=== PATIENT | female | born 1940 | race African-American/Black ===

== ENCOUNTER → 2016-11-09 | Outpatient (CLI) | payer OTHER, MEDICAID ==
[2016-07-06 16:37] VITALS: BP 130/68
--- NOTE | 2016-11-09 15:45 | RAD ---
HISTORY: Right shoulder pain, nontraumatic Study: Right shoulder three view Comparison: None Findings: The clavicle is intact. Mild AC joint degenerative joint disease is present. The glenohumeral artic ulation is normal in its appearance. No acute cortical disruption or dislocation can be identified. The visualized portions of the scapula are unremarkable. In addition, the visualized portions of the right hemithorax appear normal. IMPRESSION: 1. AC joint degenerative joint disease Reported By:
--- NOTE | 2016-11-09 15:46 | RAD ---
HISTORY: Left shoulder pain, nontraumatic Study: Left shoulder three view Comparison: None Findings: The clavicle is intact as is the scapula, proximal humerus, and left upper ribs. Degenerative joint disease is present in the AC joint and glenohumeral joints. IMPRESSION: AC joint and glenohumeral joint degenerative joint disease Reported By:
--- NOTE | 2016-11-09 15:49 | RAD ---
HISTORY: Left elbow pain Study: Left elbow three view Comparison: None Findings: There is no evidence for acute bone or acute joint abnormality. No fracture, lytic, or blastic lesio n is identified. No joint erosion or joint effusion is present. There is, however, severe ulnar shiraz ral degenerative joint disease with joint space narrowing, osteophyte formation, and subchondral scl erosis. The radiohumeral joint appears within normal limits. 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
== END ==
LOC: RAD 14:27
PROVIDERS: ATTEND Nurse Practitioner Family
DX: M21.822 Other specified acquired deformities of left upper arm (principal); M79.7 Fibromyalgia; M19.012 Primary osteoarthritis, left shoulder; M19.022 Primary osteoarthritis, left elbow
CPT/HCPCS: 73030; 73070

== ENCOUNTER → 2016-11-16 | Outpatient (CLI) | payer OTHER, MEDICAID ==
[2016-07-06 16:37] VITALS: BP 130/68
[2016-11-16 11:43] LABS: BASOPHILS # (AUTO) 0.2 X10^3/uL (0.0-0.1); BASOPHILS % (AUTO) 3.5 % (0.2-1.0); EOSINOPHILS # (AUTO) 0.1 x10^3/uL (0.0-0.2); HEMOGLOBIN 13.5 g/dL (12.0-16.0); LYMPHOCYTES # (AUTO) 1.8 X10^3/uL (1.3-2.9); LYMPHOCYTES % (AUTO) 34.9 % (21.0-51.0); MEAN CORPUSCULAR HEMOGLOBIN 30.2 pg (27.0-34.0); MEAN CORPUSCULAR HGB CONC 33.9 g/dL (33.0-35.0); MEAN CORPUSCULAR VOLUME 89.3 fL (80.0-100.0); MONOCYTES # (AUTO) 0.3 x10^3/uL (0.3-0.8); MONOCYTES % (AUTO) 6.4 % (0.0-13.0); NEUTROPHILS # (AUTO) 2.8 x10^3/uL (2.2-4.8); NEUTROPHILS % (AUTO) 54.2 % (42.0-75.0); PLATELET COUNT 229 X10^3/uL (150.0-450.0); RED BLOOD COUNT 4.48 X10^6/uL (3.5-5.4); RED CELL DISTRIBUTION WIDTH 14.3 % (11.6-16.5); WHITE BLOOD COUNT 5.1 X10^3/uL (3.6-10.0)
[2016-11-16 12:06] LABS: HEMOGLOBIN A1C 5.7 % (4.5-6.2)
[2016-11-16 12:34] LABS: RHEUMATOID FACTOR NEGATIVE (NEGATIVE)
[2016-11-16 17:21] LABS: ALANINE AMINOTRANSFERASE 16 Units/L (12-78); ALBUMIN 3.8 g/dL (3.4-5.0); ALKALINE PHOSPHATASE 89 Units/L (46-116); ASPARTATE AMINO TRANSFERASE 18 Units/L (15-37); BLOOD UREA NITROGEN 14 mg/dL (7-18); CALCIUM 9.8 mg/dL (8.5-10.1); CARBON DIOXIDE 27.4 mmol/L (21-32); CHLORIDE 104 mmol/L (98-107); CHOL/HDL RATIO 2.7 (0.0-5.0); CHOLESTEROL 155 mg/dL (0-200); CREATININE 0.71 mg/dL (0.55-1.02); GLUCOSE 98 mg/dL (65-99); HDL CHOLESTEROL 57 mg/dL (40-60); SODIUM 140 mmol/L (136-145); TOTAL PROTEIN 7.4 g/dL (6.4-8.2); TRIGLYCERIDES 83 mg/dL (0-150); eGFR BLACK RACES > 60 (>60); eGFR NON BLACK RACES > 60 (>60)
== END ==
LOC: LAB 11:16
PROVIDERS: ATTEND Nurse Practitioner Family
DX: M79.7 Fibromyalgia (principal); E78.4 Other hyperlipidemia; I10 Essential (primary) hypertension
CPT/HCPCS: 36415; 80048; 80061; 80076; 83036; 85025; 86200; 86430

== ENCOUNTER → 2016-12-15 | Outpatient (CLI) | payer OTHER, MEDICAID ==
[2016-07-06 16:37] VITALS: BP 130/68
--- NOTE | 2016-12-15 15:32 | RAD ---
Three views of the left knee Indication: Chronic knee pain without an acute injury Findings: There is fairly symmetric diffuse joint space loss within the patellofemoral and femorotib ial compartments without significant osteophyte formation or sclerosis suggesting an inflammatory ar thropathy, correlation for history of rheumatoid arthritis is recommended. There is a suspected smal l suprapatellar joint effusion. No acute fracture dislocation. No localizing soft tissue swelling. Impression: Fairly symmetric joint space loss within the femorotibial and patellofemoral compartment s with a small suprapatellar joint effusion suggests a chronic inflammatory arthritis such as rheuma toid arthritis for which clinical correlation is needed. No acute fracture or dislocation of the lef t knee. Reported By:
--- NOTE | 2016-12-15 15:50 | RAD ---
HISTORY: Chronic knee pain Study: Right knee three views, weight-bearing Comparison: None Findings: The bones are osteopenic. There is no evidence for acute bone or acute joint abnormality. No fractur e, lytic, or blastic lesion is identified. No joint erosion or joint effusion is present. There is m ild medial lateral compartment narrowing likely degenerative in origin however considering the osteo penia and the lack of other significant degenerative changes an inflammatory arthritis could also be considered. IMPRESSION: Osteopenia Mild medial lateral compartment narrowing likely degenerative in origin however an inflammatory arth ritis could also be considered due to the osteopenia and lack of other degenerative findings. Reported By:
== END ==
LOC: RAD 14:37
PROVIDERS: ATTEND Nurse Practitioner Family
DX: M25.561 Pain in right knee (principal); M25.562 Pain in left knee
CPT/HCPCS: 73560

== ENCOUNTER → 2017-02-02 | Outpatient (CLI) | payer OTHER, MEDICAID ==
[2016-07-06 16:37] VITALS: BP 130/68
--- NOTE | 2017-02-02 15:14 | RAD ---
HISTORY: Inflammatory polyarthropathy Study: Left ankle three view Comparison: None Findings: The patient is status post open reduction and internal fixation of remote medial malleolar and dista l fibular fractures with hardware present. No acute fractures are identified. Posttraumatic degenera tive joint disease is present in the tibiotalar joint. No joint erosion or joint effusion is identif ied. IMPRESSION: Postsurgical/posttraumatic findings as above Posttraumatic degenerative joint disease tibiotalar joint Reported By:
--- NOTE | 2017-02-02 15:19 | RAD ---
HISTORY: Inflammatory polyarthropathy Study: right ankle three view Comparison: None Findings: No acute cortical disruption or dislocation can be identified. The ankle mortise remains well align ed. No significant soft tissue swelling or injury can be seen. The visualized portions of the talu s and calcaneus are unremarkable. IMPRESSION: 1. Negative exam. Reported By:
--- NOTE | 2017-02-02 15:20 | RAD ---
HISTORY: Inflammatory polyarthropathy Study: Right foot three view Comparison: None Findings: There is no evidence for acute bone or acute joint abnormality. No fracture, lytic, or blastic lesio n is identified. No erosive arthritis or soft tissue abnormality is identified. There is severe arth ritic change in the 1st MTP joint likely degenerative in origin. IMPRESSION: Severe degenerative joint disease 1st MTP joint Reported By:
--- NOTE | 2017-02-02 15:21 | RAD ---
HISTORY: Inflammatory polyarthropathy Study: Left foot three view Comparison: None Findings: There is no evidence for acute bone or acute joint abnormality. No fracture, lytic, or blastic lesio n is identified. No erosive arthritis is present. Degenerative joint disease is present in the 1st, 2nd, and 3rd tarsometatarsal joints. posttraumatic degenerative joint disease is present in the tibi otalar joint. IMPRESSION: Degenerative joint disease 1st, 2nd, 3rd tarsometatarsal joints Posttraumatic degenerative joint disease tibiotalar joint Reported By:
[2017-02-02 16:09] LABS: C-REACTIVE PROTEIN 5.4 mg/L (0-3.0); CALCIUM 9.6 mg/dL (8.5-10.1)
[2017-02-07 06:30] LABS: PARATHYROID HORMONE INT 111 pg/mL (15-65); VITAMIN D 25 OH 18 ng/mL (30-80)
[2017-02-07 06:45] LABS: ANTI-NUCLEAR ANTIBODY TEST None Detected (None Detected)
== END | disposition home or self-care (01) | DRG 554 ==
LOC: LAB 14:12
PROVIDERS: ATTEND Nurse Practitioner Family
DX: M81.0 Age-related osteoporosis without current pathological fracture (principal); M06.4 Inflammatory polyarthropathy; M89.9 Disorder of bone, unspecified
CPT/HCPCS: 36415; 73610; 73630; 82306; 82310; 82330; 83970; 85652; 86140; 86308

== ENCOUNTER → 2017-03-22 | Outpatient (CLI) | payer OTHER, MEDICAID ==
[2016-07-06 16:37] VITALS: BP 130/68
== END ==
LOC: LAB 13:54
PROVIDERS: ATTEND Nurse Practitioner Family
DX: E21.2 Other hyperparathyroidism (principal); M81.0 Age-related osteoporosis without current pathological fracture
CPT/HCPCS: 36415; 82306; 82310; 82330; 83970

== ENCOUNTER → 2017-08-10 | Outpatient (CLI) | payer OTHER, MEDICAID ==
[2016-07-06 16:37] VITALS: BP 130/68
[2017-08-10 14:03] LABS: BASOPHILS % (AUTO) 0.7 % (0.2-1.0); EOSINOPHILS # (AUTO) 0.1 x10^3/uL (0.0-0.2); EOSINOPHILS % (AUTO) 1.1 % (0.9-2.9); HEMATOCRIT 40.9 % (36.0-47.0); LYMPHOCYTES # (AUTO) 2.5 X10^3/uL (1.3-2.9); LYMPHOCYTES % (AUTO) 40.5 % (21.0-51.0); MEAN CORPUSCULAR HEMOGLOBIN 30.9 pg (27.0-34.0); MEAN CORPUSCULAR HGB CONC 34.2 g/dL (33.0-35.0); MEAN CORPUSCULAR VOLUME 90.4 fL (80.0-100.0); MEAN PLATELET VOLUME 9.2 fL (7.4-11.0); MONOCYTES # (AUTO) 0.4 x10^3/uL (0.3-0.8); MONOCYTES % (AUTO) 5.7 % (0.0-13.0); NEUTROPHILS # (AUTO) 3.2 x10^3/uL (2.2-4.8); PLATELET COUNT 245 X10^3/uL (150.0-450.0); RED BLOOD COUNT 4.53 X10^6/uL (3.5-5.4); RED CELL DISTRIBUTION WIDTH 13.9 % (11.6-16.5); WHITE BLOOD COUNT 6.2 X10^3/uL (3.6-10.0)
[2017-08-10 14:22] LABS: ALANINE AMINOTRANSFERASE 21 Units/L (12-78); ALBUMIN 3.6 g/dL (3.4-5.0); ALKALINE PHOSPHATASE 94 Units/L (46-116); ASPARTATE AMINO TRANSFERASE 22 Units/L (15-37); BLOOD UREA NITROGEN 16 mg/dL (7-18); CALCIUM 9.5 mg/dL (8.5-10.1); CARBON DIOXIDE 29.3 mmol/L (21-32); CHLORIDE 101 mmol/L (98-107); COR NA(FOR HYPERGLY) 137 mmol/L (136-145); CREATININE 0.73 mg/dL (0.55-1.02); FREE T4 (FREE THYROXINE) 1.05 ng/dL (0.76-1.46); SODIUM 137 mmol/L (136-145); TOTAL PROTEIN 7.5 g/dL (6.4-8.2); URIC ACID 4.9 mg/dL (2.6-6.0); eGFR BLACK RACES > 60 (>60); eGFR NON BLACK RACES > 60 (>60)
[2017-08-10 15:15] LABS: ERYTHROCYTE SEDIMENTATION RATE 15 MM/HOUR (0-20)
== END ==
LOC: LAB 13:39
PROVIDERS: ATTEND Nurse Practitioner Family
DX: M06.4 Inflammatory polyarthropathy (principal); E56.8 Deficiency of other vitamins; E21.2 Other hyperparathyroidism; M10.9 Gout, unspecified; E03.8 Other specified hypothyroidism; I10 Essential (primary) hypertension
CPT/HCPCS: 36415; 80053; 82306; 82330; 83970; 84439; 84443; 84481; 84550; 85025; 85652; 86140

== ENCOUNTER 2019-12-24 06:28 | Inpatient (IN) ==
[2019-12-24 06:43] VITALS: BMI 39.3
[2019-12-24] MEDS ORDERED: TYLENOL 500 MG TAB EXTRA STRENGTH PO ONE ×2 (07:13→07:15)
--- NOTE | 2019-12-24 07:19 | RAD ---
HISTORYFever, chills, body achesSTUDYCHEST, 1 VIEWCOMPARISONNoneFINDINGSThe heart is within normal limits in size. The daphney are normal. The lung sherman are clear. No pleural effusions are identified. Bony thorax is unremarkable.IMPRESSIONLungs clearElectronically signed by: LORY BUI (Dec 24, 2019 07:18:12)
--- NOTE | 2019-12-24 07:20 | DR.FEVERAD ---
HPI Time seen Time Seen by Provider: 12/24/19 06:49 PCP Primary Care Physician: adriana HPI Comment HPI Comment: PATIENT IS 79 OLD FEMALE IN ER WITH PROGRESSIVE SOB, MYALGIA, WEAKNESS FEVER WITH CHILLSTIMES 10 DAYS. SYMPTOMS WORSE PAST 2 DAYS AND TONIGHT, WORSE EVER. COUGHING, NON PORODUCTIVE. CHILLS AND MYALGIA ALSO. TEMP 103.6 IN ER . PATIENT HAVE 7/10 CHEST TIGHTNESS IN XYPHOID AREA RADIATING TO THE BACK. MEDICATIONS TAKEN SO FAR IS NOT HELPING. Complaints/Symptoms Chief Complaint Doctor Comments: FEVER, CHILLS, BODYACHES AND SOB, PROGRESSIVE TIMES 10 DAYS. Chief Complaint:: pt stated for the past 7 to 10 days she has been running fever, chills, boddy aches, pain when she takes a deep breath, feeling tired and 2 days ago she started having a dry cough. pt stated she would like to be tested for covid while she was here. COVID-19 Coronavirus risk:travel/contact w/high risk person: No Has patient experienced Coronavirus symptoms: Yes Coronavirus symptoms experienced: Fever, Coughing and Shortness of Breath Source History Provided: Patient and EMS Mode of Arrival Mode of Arrival: EMS Timing Onset of Chief Complaint: 12/16/19 Came on: Suddenly Duration Duration: Constant Duration: Days Severity Fever Severity/Quality: greater than 102 F Context Recent: None Symptoms: Fever, Chills, Cough and SOB; denies Sore throat History of: Diabetes Modifying factors Modifying factors: Nothing Associated signs and symptoms Associated signs and symptoms: Weakness and Myalgia PMH PMH Past Medical History: Yes Past Medical History: Arthritis, Asthma, GERD, Gout and Hypertension Past Surgical History: Yes Surgical History: Unknown Family History History of Family Medical Conditions: Yes Family Medical History: Diabetes Mellitus, Cancer, [place], Coronary Artery Disease and Hypertension Social History Does patient currently use any type of tobacco product: No Have you used tobacco products in the last 12 months: No Type of Tobacco Use: None Does any household member use tobacco: No Alcohol Use: None Do you use any recreational Drugs:: No Lives With: Family Lives Where: Home Infectious screening In the last 2 months have you had wt loss of >10#?: NO Have you had fever, night sweats or hemotysis?: No Have you traveled outside the country in the last 6 months?: No Isolation: Standard ROS Review of Systems Constitutional: See HPI, Chills, Fever, Malaise, Weakness, Fatigue and Loss of Appetite Eyes: No Symptoms Reported and See HPI; negative Blurred Vision and Diplopia ENTM: See HPI and Nose Congestion; negative Ear Pain, Nose Discharge and Throat Pain Respiratoy: No Symptoms Reported, See HPI, Non-Productive Cough and Short of Breath Cardiovascular: No Symptoms Reported, See HPI, Chest Pain and Edema; negative Palpitations Gastrointestinal/Abdominal: No Symptoms Reported, See HPI, Abdominal Pain and Nausea; negative Constipation, Diarrhea and Vomiting Genitourinary: No Symptoms Reported and See HPI; negative Dysuria and Pain Neurological: No Symptoms Reported and See HPI Musculoskeletal: No Symptoms Reported, See HPI, Back Pain and Muscle Pain Integumentary: No Symptoms Reported and See HPI; negative Change in Color, Rash and Juandice Hematologic/Lymphatic: No Symptoms Reported and See HPI; negative Easy Bruising and Swollen Glands Endocrine: No Symptoms Reported and See HPI; negative Increased Urine and Unexplained Weight Loss Psychiatric: No Symptoms Reported and See HPI All Other Systems: Reviewed and Negative PE Vital Signs Vitals: Temperature 103.6 F Pulse Rate 78 Respiratory Rate 27 Blood Pressure [Right Arm] 128/60 Blood Pressure [Left Arm] 131/67 Blood Pressure 118/64 O2 Sat by Pulse Oximetry 92 General Limitations: No Limitations General Appearance: Alert and In Distress Head Head Exam: Normal Inspection Eyes Eye exam: Normal Appearance and PERRL; negative Scleral Icterus and Conjunctival Injection ENT ENT Exam: Normal Exam, Normal Oropharynx, Normal External Ear Exam and TM's Normal Bilaterally External Ear Exam: Normal External Inspection; negative Mastoid Tenderness TM/Canal Exam: Bilateral: Normal Nose Exam: negative Sinus Tenderness Mouth Exam: negative Lip Swelling and Tongue Swelling Teeth Exam: Dental Caries; negative Dental Tenderness # and Gingival Swelling Throat Exam: negative Tonsillar Erythema, Tonsillomegaly and Tonsillar Exudate Neck Neck Exam: Normal Inspection and Trachea Midline; negative Tenderness and Lymphadenopathy Respiratory Respiratory Exam: Normal Lung Sounds Bilat; negative Accessory Muscle Use, Chest Wall Tenderness and Respiratory Distress Respiratory Exam: Bilateral: Rhonchi and Lower: Rhonchi Cardiovascular Cardiovascular Exam: Regular Rate, Normal Rhythm and Normal Heart Sounds; negative Systolic Murmur and Diastolic Murmur Abdominal Exam Abdominal Exam: Normal Inspection, Normal Bowel Sounds and Soft; negative Tenderness Extremities Extremities Exam: Normal Inspection, Normal Capillary Refill and Edema (TRACE EDEMA.); negative Tenderness and Calf Tenderness Back Back Exam: Normal Inspection; negative Tenderness, (R) CVA Tenderness, (L) CVA Tenderness and Paraspinal Tenderness Neurologic Neurological Exam: Alert, Oriented X3 and CN II-XII Intact; negative Motor Sensory Deficit Psychiatric Psychiatric Exam: Normal Affect and Normal Mood Skin Skin Exam: Dry and Erythema MDM Differential Diagnosis Differential Diagnosis: Dehydration, Electrolyte disorder, Hypoxemia, Influenza, Myocardial Infarction, Pneumonia, Pyelonephritis, UTI, Sepsis and Viral syndrome COURSE Treatment Treatment: SEE ORDERS. Consultation Consultation Comments: DISCUSSED PATIENT WITH , SHE WILL ADMIT PATIENT. Education/Counseling Education/Counseling: Patient Educated On: Diagnosis ROR Labs Reviewed Laboratory Results Reviewed?: Yes Result Diagrams: 12/24/19 07:10 12/24/19 07:10 Laboratory: WBC 18.5 X10^3/uL (3.6-10.0) H 12/24/19 07:10 RBC 4.69 X10^6/uL (3.5-5.4) 12/24/19 07:10 Hgb 14.9 g/dL (12.0-16.0) 12/24/19 07:10 Hct 43.0 % (36.0-47.0) 12/24/19 07:10 MCV 91.7 fL (80.0-100.0) 12/24/19 07:10 MCH 31.8 pg (27.0-34.0) 12/24/19 07:10 MCHC 34.7 g/dL (33.0-35.0) 12/24/19 07:10 RDW 13.9 % (11.6-16.5) 12/24/19 07:10 Plt Count 340 X10^3/uL (150.0-450.0) 12/24/19 07:10 Plt Count Comment Adequate (ADEQUATE) 12/24/19 07:10 MPV 8.9 fL (7.4-11.0) 12/24/19 07:10 Neut % (Auto) 90.6 % (42.0-75.0) H 12/24/19 07:10 Lymph % (Auto) 5.8 % (21.0-51.0) L 12/24/19 07:10 Green % (Auto) 3.2 % (0.0-13.0) 12/24/19 07:10 Eos % (Auto) 0.1 % (0.9-2.9) L 12/24/19 07:10 Baso % (Auto) 0.3 % (0.2-1.0) 12/24/19 07:10 Neut # (Auto) 16.8 x10^3/uL (2.2-4.8) H 12/24/19 07:10 Lymph # (Auto) 1.1 X10^3/uL (1.3-2.9) L 12/24/19 07:10 [place] # (Auto) 0.6 x10^3/uL (0.3-0.8) 12/24/19 07:10 Eos # (Auto) 0.0 x10^3/uL (0.0-0.2) 12/24/19 07:10 Baso # (Auto) 0.0 X10^3/uL (0.0-0.1) 12/24/19 07:10 Absolute Nucleated RBC 0.0 /100WBC 12/24/19 07:10 Total Counted 100 12/24/19 07:10 Neutrophils % (Manual) 85 % (39-76) H 12/24/19 07:10 Lymphocytes % (Manual) 10 % (13-43) L 12/24/19 07:10 Monocytes % (Manual) 5 % (4-9) 12/24/19 07:10 Plt Morphology Comment Normal (NORMAL) 12/24/19 07:10 RBC Morphology Normal (NORMAL) 12/24/19 07:10 Sodium 132 mmol/L (136-145) L 12/24/19 07:10 Corrected Sodium TNP 12/24/19 07:10 Potassium 3.0 mmol/L (3.5-5.1) L* 12/24/19 07:10 Chloride 95 mmol/L (98-107) L 12/24/19 07:10 Carbon Dioxide 23.4 mmol/L (21-32) 12/24/19 07:10 BUN 20 mg/dL (7-18) H 12/24/19 07:10 Creatinine 1.07 mg/dL (0.55-1.02) H 12/24/19 07:10 Est GFR (MDRD) Af Amer > 60 (>60) 12/24/19 07:10 Est GFR (MDRD) Non-Af 53 (>60) L 12/24/19 07:10 Glucose 98 mg/dL (65-99) 12/24/19 07:10 Lactic Acid 1.1 mmol/L (0.4-2.0) 12/24/19 07:10 Calcium 9.6 mg/dL (8.5-10.1) 12/24/19 07:10 Corrected Calcium 10.7 mg/dL (8.5-10.1) H 12/24/19 07:10 Total Bilirubin 0.60 mg/dL (0.2-1.0) 12/24/19 07:10 AST 19 Units/L (15-37) 12/24/19 07:10 ALT 23 Units/L (12-78) 12/24/19 07:10 Alkaline Phosphatase 71 Units/L (46-116) 12/24/19 07:10 Creatine Kinase 50 Units/L (26-192) 12/24/19 07:10 CK-MB (CK-2) < 1.0 ng/mL (0-4.0) 12/24/19 07:10 CK/CKMB % Calc 2.0 % (<4) 12/24/19 07:10 Troponin I < 0.02 ng/mL (0-1.5) 12/24/19 07:10 B-Natriuretic Peptide 84.4 pg/mL (0-79) H 12/24/19 07:10 Total Protein 7.8 g/dL (6.4-8.2) 12/24/19 07:10 Albumin 2.6 g/dL (3.4-5.0) L 12/24/19 07:10 Globulin 5.2 g/dL (2.5-4.5) H 12/24/19 07:10 Albumin/Globulin Ratio 0.5 Ratio (1.1-2.1) L 12/24/19 07:10 RSV Nasal Swab Negative (NEGATIVE) 12/24/19 07:05 Influenza Type A Ag Negative-presumptive (NEGATIVE) 12/24/19 07:05 Influenza Type B Ag Negative-presumptive (NEGATIVE) 12/24/19 07:05 SARS-CoV-2 (PCR) Negative (NEGATIVE) 12/24/19 07:52 S. pyogenes (TEM-PCR) Not detected (NOT DETECT) 12/24/19 07:05 XRAY XRAY Interpreted by: Radiologist (REPORT NOTED AND DISCUSSED WITH PATIENT.) and Self (NO ACUTE INFILTRATE.) EKG Rate: 82 [place]: LAD Rhythm: NSR Block: LBBB (LAFB) Hypertrophy: LAE and LVH ST: Nonsp Opioid Opioid Risk Tool Age (Abhijit box if 16-45): No History of Preadolescent Sexual Abuse: No Total: 0 Total Score Risk Category: Low Risk Copyright: [facility] predicting aberrant behaviors Diagnosis Discharge Problem: Respiratory distress, Hypokalemia Fever Qualifiers: Fever type: unspecified Qualified Code(s): R50.9 - Fever, unspecified Chest pain Qualifiers: Chest pain type: precordial pain Qualified Code(s): R07.2 - Precordial pain
[2019-12-24 07:30] LABS: BASOPHILS % (AUTO) 0.3 % (0.2-1.0); EOSINOPHILS % (AUTO) 0.1 % (0.9-2.9); HEMOGLOBIN 14.9 g/dL (12.0-16.0); LYMPHOCYTES # (AUTO) 1.1 X10^3/uL (1.3-2.9); LYMPHOCYTES % (AUTO) 5.8 % (21.0-51.0); MEAN CORPUSCULAR HEMOGLOBIN 31.8 pg (27.0-34.0); MEAN CORPUSCULAR HGB CONC 34.7 g/dL (33.0-35.0); MEAN CORPUSCULAR VOLUME 91.7 fL (80.0-100.0); MEAN PLATELET VOLUME 8.9 fL (7.4-11.0); MONOCYTES # (AUTO) 0.6 x10^3/uL (0.3-0.8); MONOCYTES % (AUTO) 3.2 % (0.0-13.0); NEUTROPHILS # (AUTO) 16.8 x10^3/uL (2.2-4.8); NEUTROPHILS % (AUTO) 90.6 % (42.0-75.0); PLATELET COUNT 340 X10^3/uL (150.0-450.0); RED BLOOD COUNT 4.69 X10^6/uL (3.5-5.4); RED CELL DISTRIBUTION WIDTH 13.9 % (11.6-16.5); WHITE BLOOD COUNT 18.5 X10^3/uL (3.6-10.0)
[2019-12-24 07:52] LABS: RSV AG DETECTION NEGATIVE (NEGATIVE)
[2019-12-24 07:56] LABS: LACTIC ACID 1.1 mmol/L (0.4-2.0)
[2019-12-24 08:00] LABS: PLATELET MORPHOLOGY COMMENT NORMAL (NORMAL)
[2019-12-24 08:03] LABS: ALANINE AMINOTRANSFERASE 23 Units/L (12-78); ALBUMIN 2.6 g/dL (3.4-5.0); ALKALINE PHOSPHATASE 71 Units/L (46-116); ASPARTATE AMINO TRANSFERASE 19 Units/L (15-37); BLOOD UREA NITROGEN 20 mg/dL (7-18); CALCIUM 9.6 mg/dL (8.5-10.1); CARBON DIOXIDE 23.4 mmol/L (21-32); CHLORIDE 95 mmol/L (98-107); COR CA(FOR HYPOALB) 10.7 mg/dL (8.5-10.1); CREATINE KINASE 50 Units/L (26-192); CREATINE KINASE MB < 1.0 ng/mL (0-4.0); CREATININE 1.07 mg/dL (0.55-1.02); SODIUM 132 mmol/L (136-145); TOTAL PROTEIN 7.8 g/dL (6.4-8.2); TROPONIN I < 0.02 ng/mL (0-1.5); eGFR NON BLACK RACES 53 (>60)
[2019-12-24] MEDS ORDERED: ROCEPHIN VIAL 1 GRAM 1 G in NS 100 ML IV + SPIKE MINIBAG* 100 ML IV ONE (08:06)
[2019-12-24 08:16] LABS: BILIRUBIN,URINE 2+ (NEGATIVE); BLOOD/HEMOGLOBIN,URINE 5+ (NEGATIVE); GLUCOSE, URINE NEGATIVE (NEGATIVE); KETONES,URINE 3+ (NEGATIVE); LEUKOCYTE ESTERASE ,URINE 1+ (NEGATIVE); NITRITES,URINE NEGATIVE (NEGATIVE); PROTEIN,URINE 2+ (NEGATIVE); UROBILINOGEN,URINE 1+ (NORMAL)
[2019-12-24 08:25] LABS: APPEARANCE,URINE HAZY (CLEAR)
[2019-12-24 08:26] LABS: AMORPHOUS SEDIMENT,UR TRACE /HPF (NEGATIVE); BACTERIA,URINE TRACE /HPF (NEGATIVE); COLOR,URINE DARK YELLOW (YELLOW); HYALINE CASTS, URINE MODERATE /LPF (NEGATIVE); MUCUS,URINE MANY /HPF (NEGATIVE); RENAL EPITHELIAL CELLS,URINE RARE /HPF (NEGATIVE); SQUAMOUS EPITHELIAL CELL,UR RARE /HPF (NEGATIVE)
[2019-12-24] MEDS ORDERED: NS 1000 ML 1,000 ML ONE (08:57)
[2019-12-24] MEDS ORDERED: NS 100 ML IV + SPIKE MINIBAG* 100 ML IV ONE (08:57)
[2019-12-24] MEDS ORDERED: ROCEPHIN VIAL 1 GRAM ONE (09:00)
[2019-12-24] MEDS: ROCEPHIN VIAL 1 GRAM 1 G in NS 100 ML IV + SPIKE MINIBAG* 100 ML IV SCH ×2 (09:01→10:55)
[2019-12-24] MEDS ORDERED: ULTRAM PO PRN (10:34)
[2019-12-24] MEDS ORDERED: K-DUR TAB 20 MEQ PO ONE (10:34)
[2019-12-24] MEDS ORDERED: NS 1000 ML 1,000 ML IV SCH (10:34)
[2019-12-24] MEDS ORDERED: VOLTAREN 1 % GEL MULTI DOSE TUBE TOP PRN (10:34)
[2019-12-24] MEDS: CATAPRES TAB 0.1 MG PO SCH ×2 (11:35→11:51)
[2019-12-24] MEDS: K-DUR TAB 20 MEQ PO SCH (11:35)
[2019-12-24] MEDS: ZESTORETIC 20/25 MG PO SCH ×2 (11:36→11:52)
[2019-12-24] MEDS: SYNTHROID 50 mcg TAB PO SCH (11:36)
[2019-12-24] MEDS: PriLOSEC PO SCH (11:36)
[2019-12-24] MEDS: NEURONTIN CAP 100 MG PO SCH ×3 (11:36→22:02)
[2019-12-24] MEDS: NS + KCL 40 MEQ/L 1,000 ML IV SCH (11:37)
[2019-12-24] MEDS ORDERED: VENTOLIN or PROAIR HFA ONE (12:18)
[2019-12-24] MEDS ORDERED: MICRO K EXTEN CAP 10 MEQ PO PRN (12:56)
[2019-12-24] MEDS ORDERED: K-DUR TAB 20 MEQ PO PRN (12:56)
[2019-12-24] MEDS ORDERED: POTASSIUM CHL 40 MEQ/NS 0.45% 500 ML IV PRN (12:56)
[2019-12-24] MEDS ORDERED: KLOR-CON PO PRN (12:56)
[2019-12-24] MEDS ORDERED: POTASSIUM CHLORIDE LIQ 20 MEQ UDC PO PRN (12:56)
[2019-12-24] MEDS ORDERED: POTASSIUM CHL 60 MEQ/NS 0.45% 500 ML IV PRN (12:56)
[2019-12-24] MEDS ORDERED: K-RIDER 10 MEQ/NS 100 ML 10 MEQ/100 ML BAG IV PRN (12:56)
[2019-12-24] MEDS ORDERED: VENTOLIN or PROAIR HFA IN PRN (13:00)
--- NOTE | 2019-12-24 13:10 | DR.H&P ---
H&P History & Physical for Day of: H&P Date: 12/24/19 Chief Complaint Chief Complaint: fever, weakness, cough Allergies Allergies Allergy/AdvReac Type Severity Reaction Status Date / Time No Known Drug Allergies Allergy Verified 12/24/19 06:31 History of Present Illness History of Present Illness: Ms. Mitchell is a 79y/o female who presented with fever, cough and weakness. She states she has been sick for a week now and worsened over the weekend. She reports subjective fever and weakness. She also reports nausea and diarrhea that started yesterday. She has decreased appetite, not been eating and drinking like usual. She also has productive cough with white sputum. Denies known sick contact but she has been to different stores lately. She states she was wearing her mask. Denies any urinary symptoms. Denies SOB. She does reports chest wall pain with deep breathing. ED work up: - CXR: no acute process -Labs: elevated WBC, K: 3.0 Na: 132 Cl: 95 BUN/Cr: 20/1.07 Troponin (-) - UA: RBC, ketones and protein present, nitrite (-), BOBBI 1+ - Rapid COVID (-), send out pending to confirm Meds: IVF, rocephin Patient is currently on 2L NC. Plan: resume home medications, hold anti-hypertensives as patient's BP in low 100s. Follow cultures and COVID test. Continue Rocephin, add azithromycin. Continue K supplements with IVF. Check d-dimer and crp. Trend cardiac profile. Monitor AM labs. Albuterol prn , IS. Past Medical History Past Medical History: Arthritis, Asthma, GERD, Gout and Hypertension Past Surgical History Surgical History: Ortho Surgery Family History Family Medical History: Diabetes Mellitus, [place] and Heart Failure Social History Does patient currently use any type of tobacco product: No Have you used tobacco products in the last 12 months: No Type of Tobacco Use: Cigarettes Does any household member use tobacco: No Alcohol Use: None Drug Use: None Medications Home Medications: No Known Drug Allergies Allergy (Verified 12/24/19 06:31) CONTINUE taking the following medications aspirin [Aspir-81] 81 mg PO DAILY 12/24/19 [History] atorvastatin 10 mg PO HS 12/24/19 [History] clonidine HCl 0.1 mg PO BID 12/24/19 [History] diclofenac sodium 1 % TOPICAL BID PRN 12/24/19 [History] ergocalciferol (vitamin D2) [Vitamin D2] 1,250 mcg PO WEEKLY 12/24/19 [History] gabapentin 100 mg PO BID 12/24/19 [History] gabapentin 400 mg PO HS 12/24/19 [History] hydrocodone-acetaminophen 1 tab PO BID PRN 12/24/19 [History] levothyroxine 50 mcg PO DAILY 12/24/19 [History] lisinopril-hydrochlorothiazide 1 tab PO DAILY 12/24/19 [History] omeprazole 40 mg PO DAILY 12/24/19 [History] potassium chloride 20 meq PO DAILY 12/24/19 [History] tramadol 50 mg PO DAILY PRN 12/24/19 [History] zolpidem 5 mg PO HS 12/24/19 [History] Labs Result Diagrams: 12/24/19 07:10 12/24/19 12:54 Labs: Laboratory WBC 18.5 X10^3/uL (3.6-10.0) H 12/24/19 07:10 RBC 4.69 X10^6/uL (3.5-5.4) 12/24/19 07:10 Hgb 14.9 g/dL (12.0-16.0) 12/24/19 07:10 Hct 43.0 % (36.0-47.0) 12/24/19 07:10 MCV 91.7 fL (80.0-100.0) 12/24/19 07:10 MCH 31.8 pg (27.0-34.0) 12/24/19 07:10 MCHC 34.7 g/dL (33.0-35.0) 12/24/19 07:10 RDW 13.9 % (11.6-16.5) 12/24/19 07:10 Plt Count 340 X10^3/uL (150.0-450.0) 12/24/19 07:10 Plt Count Comment Adequate (ADEQUATE) 12/24/19 07:10 MPV 8.9 fL (7.4-11.0) 12/24/19 07:10 Neut % (Auto) 90.6 % (42.0-75.0) H 12/24/19 07:10 Lymph % (Auto) 5.8 % (21.0-51.0) L 12/24/19 07:10 [place] % (Auto) 3.2 % (0.0-13.0) 12/24/19 07:10 Eos % (Auto) 0.1 % (0.9-2.9) L 12/24/19 07:10 Baso % (Auto) 0.3 % (0.2-1.0) 12/24/19 07:10 Neut # (Auto) 16.8 x10^3/uL (2.2-4.8) H 12/24/19 07:10 Lymph # (Auto) 1.1 X10^3/uL (1.3-2.9) L 12/24/19 07:10 [place] # (Auto) 0.6 x10^3/uL (0.3-0.8) 12/24/19 07:10 Eos # (Auto) 0.0 x10^3/uL (0.0-0.2) 12/24/19 07:10 Baso # (Auto) 0.0 X10^3/uL (0.0-0.1) 12/24/19 07:10 Absolute Nucleated RBC 0.0 /100WBC 12/24/19 07:10 Total Counted 100 12/24/19 07:10 Neutrophils % (Manual) 85 % (39-76) H 12/24/19 07:10 Lymphocytes % (Manual) 10 % (13-43) L 12/24/19 07:10 Monocytes % (Manual) 5 % (4-9) 12/24/19 07:10 Plt Morphology Comment Normal (NORMAL) 12/24/19 07:10 RBC Morphology Normal (NORMAL) 12/24/19 07:10 Sodium 132 mmol/L (136-145) L 12/24/19 07:10 Corrected Sodium TNP 12/24/19 07:10 Potassium 3.0 mmol/L (3.5-5.1) L* 12/24/19 07:10 Chloride 95 mmol/L (98-107) L 12/24/19 07:10 Carbon Dioxide 23.4 mmol/L (21-32) 12/24/19 07:10 BUN 20 mg/dL (7-18) H 12/24/19 07:10 Creatinine 1.07 mg/dL (0.55-1.02) H 12/24/19 07:10 Est GFR (MDRD) Af Amer > 60 (>60) 12/24/19 07:10 Est GFR (MDRD) Non-Af 53 (>60) L 12/24/19 07:10 Glucose 98 mg/dL (65-99) 12/24/19 07:10 Lactic Acid 1.1 mmol/L (0.4-2.0) 12/24/19 07:10 Calcium 9.6 mg/dL (8.5-10.1) 12/24/19 07:10 Corrected Calcium 10.7 mg/dL (8.5-10.1) H 12/24/19 07:10 Total Bilirubin 0.60 mg/dL (0.2-1.0) 12/24/19 07:10 AST 19 Units/L (15-37) 12/24/19 07:10 ALT 23 Units/L (12-78) 12/24/19 07:10 Alkaline Phosphatase 71 Units/L (46-116) 12/24/19 07:10 Creatine Kinase 50 Units/L (26-192) 12/24/19 07:10 CK-MB (CK-2) < 1.0 ng/mL (0-4.0) 12/24/19 07:10 CK/CKMB % Calc 2.0 % (<4) 12/24/19 07:10 Troponin I < 0.02 ng/mL (0-1.5) 12/24/19 07:10 B-Natriuretic Peptide 84.4 pg/mL (0-79) H 12/24/19 07:10 Total Protein 7.8 g/dL (6.4-8.2) 12/24/19 07:10 Albumin 2.6 g/dL (3.4-5.0) L 12/24/19 07:10 Globulin 5.2 g/dL (2.5-4.5) H 12/24/19 07:10 Albumin/Globulin Ratio 0.5 Ratio (1.1-2.1) L 12/24/19 07:10 Specimen Type Catherized urine 12/24/19 08:08 Urine Color Dark yellow (YELLOW) 12/24/19 08:08 Urine Appearance Hazy (CLEAR) 12/24/19 08:08 Urine pH 5.0 (5.0 - 8.0) 12/24/19 08:08 Ur Specific [place] 1.020 (1.000-1.030) 12/24/19 08:08 Urine Protein 2+ (NEGATIVE) 12/24/19 08:08 Urine Glucose (UA) Negative (NEGATIVE) 12/24/19 08:08 Urine Ketones 3+ (NEGATIVE) 12/24/19 08:08 Urine Occult Blood 5+ (NEGATIVE) 12/24/19 08:08 Urine Nitrite Negative (NEGATIVE) 12/24/19 08:08 Urine Bilirubin 2+ (NEGATIVE) 12/24/19 08:08 Urine Urobilinogen 1+ (NORMAL) 12/24/19 08:08 Ur Leukocyte Esterase 1+ (NEGATIVE) 12/24/19 08:08 Urine RBC 10-20 /HPF (0-3) A 12/24/19 08:08 Urine WBC 3-5 /HPF (0-5) 12/24/19 08:08 Ur Squamous Epith Cells Rare /HPF (NEGATIVE) 12/24/19 08:08 Ur Renal Epithelial Cell Rare /HPF (NEGATIVE) 12/24/19 08:08 Amorphous Sediment Trace /HPF (NEGATIVE) 12/24/19 08:08 Urine Bacteria Trace /HPF (NEGATIVE) 12/24/19 08:08 Hyaline Casts Moderate /LPF (NEGATIVE) 12/24/19 08:08 Urine Mucus Many /HPF (NEGATIVE) 12/24/19 08:08 Ur Culture Indicated? No/not indicated 12/24/19 08:08 RSV Nasal Swab Negative (NEGATIVE) 12/24/19 07:05 Influenza Type A Ag Negative-presumptive (NEGATIVE) 12/24/19 07:05 Influenza Type B Ag Negative-presumptive (NEGATIVE) 12/24/19 07:05 SARS-CoV-2 (PCR) Negative (NEGATIVE) 12/24/19 07:52 S. pyogenes (TEM-PCR) Not detected (NOT DETECT) 12/24/19 07:05 Review of Systems Constitutional: Fever, Weakness and Malaise Eyes: No Symptoms Reported ENT: No Symptoms Reported Respiratory: Cough, Pleuritic Pain and Sputum Cardiovascular: Chest Pain Gastrointestinal: Nausea and Diarrhea Genitourinary: No Symptoms Reported Musculoskeletal: Shoulder Pain, Back Pain and Leg Pain Skin: No Symptoms Reported Neurological: No Symptoms Reported Physical Exam Vital Signs: Temperature 98.3 F Pulse Rate 61 Respiratory Rate 26 Blood Pressure [Right Arm] 128/60 Blood Pressure [Left Arm] 131/67 Blood Pressure 113/61 O2 Sat by Pulse Oximetry 95 Oriented: Normal Eyes: Normal Respiratory: Diminished Throughout (some scaterred rhonchi ) Cardiovascular: Normal Auscultation: Bowel Sounds: Normal Palpation: Normal Tenderness: Normal Skin: Normal Musculoskeletal: Normal Psychiatric: Normal Mood Description: Calm Affect: Normal Speech Pattern: Clear and Appropriate Assessment/Plan (1) Suspected COVID-19 virus infection: Status: Acute (2) Chest pain: Qualifiers: Chest pain type: precordial pain Qualified Code(s): R07.2 - Precordial pain Status: Acute (3) Hypokalemia: Status: Acute (4) Hypotension: Qualifiers: Hypotension type: unspecified hypotension type Qualified Code(s): I95.9 - Hypotension, unspecified Status: Acute (5) Fever: Qualifiers: Fever type: unspecified Qualified Code(s): R50.9 - Fever, unspecified Status: Acute (6) Left hip pain: Status: Chronic (7) History of asthma: Status: Chronic (8) Hyperlipidemia: Qualifiers: Hyperlipidemia type: unspecified Qualified Code(s): E78.5 - Hyperlipidemia, unspecified Status: Chronic (9) GERD (gastroesophageal reflux disease): Qualifiers: Esophagitis presence: without esophagitis Qualified Code(s): K21.9 - Gastro-esophageal reflux disease without esophagitis Status: Chronic (10) Hypothyroidism: Qualifiers: Hypothyroidism type: unspecified Qualified Code(s): E03.9 - Hypothyroidism, unspecified Status: Chronic (11) Osteoarthritis: Qualifiers: Osteoarthritis location: unspecified site Osteoarthritis type: unspecified Qualified Code(s): M19.90 - Unspecified osteoarthritis, unspecified site Status: Chronic Review H&P Reviewed: Yes Patient was examined?: Yes
[2019-12-24 13:38] LABS: CREATINE KINASE 50 Units/L (26-192); CREATINE KINASE MB < 1.0 ng/mL (0-4.0); TROPONIN I < 0.02 ng/mL (0-1.5)
[2019-12-24] MEDS: ZITHROMAX TAB 250 MG PO SCH (14:55)
--- NOTE | 2019-12-24 16:29 | CT ---
HISTORY:Shortness of breath, elevated D-dimerStudy: CTA chestComparison:NoneTechnique: Multiple axial images of the chest were obtained after the administration of IV contrast. 3D reconstructions were performed utilizing radial maximum intensity projection imaging. Dose reduction techniques including Automated Exposure Control (AEC) and adjustment of mA and kV were utilized.Findings:Contrast opacification of the pulmonary arteries is adequate to the level of the segmental branches. No evidence of acute pulmonary emboli . Normal appearance of the heart and pericardium . The aorta appears normal in course and caliber. Dense multifocal consolidation is seen in right lower lobe with confluent consolidation medially near the hilum. Findings are suggestive of pneumonia. No pleural effusion or pneumothorax identified. Airways are patient. Mildly prominent hilar and paratracheal lymph nodes are present that may be reactive in nature.The soft tissues and osseous structures appear intact . The visualized portions of the upper abdomen are grossly unremarkable. Gallbladder is removed.IMPRESSION:1. Multifocal consolidation in the right lower lobe as described suggestive of pneumonia. Continued radiographic follow-up recommended to ensure full resolution after treatment.2. No acute pulmonary embolism.Electronically signed by: ANTONELLA GANNON (Dec 24, 2019 16:27:34)
[2019-12-24 20:06] LABS: CREATINE KINASE 51 Units/L (26-192); CREATINE KINASE MB < 1.0 ng/mL (0-4.0); TROPONIN I < 0.02 ng/mL (0-1.5)
[2019-12-24] MEDS: LOVENOX INJ 40 MG SYR SC SCH (21:14)
[2019-12-24] MEDS: LIPITOR TAB 10 MG PO SCH (21:16)
[2019-12-24] MEDS: NEURONTIN CAP 400 MG PO SCH (21:18)
[2019-12-24] MEDS: AMBIEN PO SCH (21:18)
[2019-12-24] MEDS: NORCO 10/325 TAB PO PRN (21:18)
[2019-12-25] MEDS: NS + KCL 40 MEQ/L 1,000 ML IV SCH (01:16)
[2019-12-25] MEDS ORDERED: TYLENOL 325 MG TAB PO ONE (04:06)
[2019-12-25] MEDS ORDERED: TYLENOL 325 MG TAB PO PRN (04:08)
[2019-12-25 05:28] LABS: BASOPHILS % (AUTO) 0.2 % (0.2-1.0); EOSINOPHILS # (AUTO) 0.1 x10^3/uL (0.0-0.2); EOSINOPHILS % (AUTO) 0.4 % (0.9-2.9); HEMATOCRIT 39.6 % (36.0-47.0); HEMOGLOBIN 13.6 g/dL (12.0-16.0); LYMPHOCYTES % (AUTO) 5.3 % (21.0-51.0); MEAN CORPUSCULAR HEMOGLOBIN 31.7 pg (27.0-34.0); MEAN CORPUSCULAR HGB CONC 34.3 g/dL (33.0-35.0); MEAN CORPUSCULAR VOLUME 92.5 fL (80.0-100.0); MEAN PLATELET VOLUME 9.3 fL (7.4-11.0); MONOCYTES # (AUTO) 0.6 x10^3/uL (0.3-0.8); MONOCYTES % (AUTO) 3.1 % (0.0-13.0); NEUTROPHILS # (AUTO) 16.8 x10^3/uL (2.2-4.8); PLATELET COUNT 327 X10^3/uL (150.0-450.0); RED BLOOD COUNT 4.28 X10^6/uL (3.5-5.4); RED CELL DISTRIBUTION WIDTH 14.2 % (11.6-16.5); WHITE BLOOD COUNT 18.5 X10^3/uL (3.6-10.0)
[2019-12-25 05:44] LABS: ALANINE AMINOTRANSFERASE 17 Units/L (12-78); ALBUMIN 2.2 g/dL (3.4-5.0); ALKALINE PHOSPHATASE 69 Units/L (46-116); ASPARTATE AMINO TRANSFERASE 16 Units/L (15-37); BLOOD UREA NITROGEN 20 mg/dL (7-18); CALCIUM 8.9 mg/dL (8.5-10.1); CARBON DIOXIDE 23.3 mmol/L (21-32); CHLORIDE 99 mmol/L (98-107); COR CA(FOR HYPOALB) 10.3 mg/dL (8.5-10.1); CREATININE 0.93 mg/dL (0.55-1.02); SODIUM 132 mmol/L (136-145); eGFR NON BLACK RACES > 60 (>60)
[2019-12-25 06:05] LABS: BAND NEUTROPHILS % 4 % (0-10); PLATELET MORPHOLOGY COMMENT NORMAL (NORMAL)
--- NOTE | 2019-12-25 08:23 | PCM.PROG ---
Progress Note Progress Note for Day of Date of Exam: 12/25/19 Subjective Subjective: Patient seen at bedside, reports feeling better. She has been ambulating to the bathroom, weakness improved. She is currently on 2L NC, breathing better. She is coughing up white sputum. She had a fever overnight, given Tylenol. CTPE yesterday showed no PE but pneumonia was noted. Labs: WBC:18.5 K:4.2 Na: 132 Troponin x 3 (-), CRP elevated, D-Dimer elevated COVID pending, follow blood cultures Plan: will switch Rocephin to Zosyn, follow blood and sputum cultures, add prednisone. Continue albuterol and IS. Remove grubbs, PT consult. Wean Oxygen as tolerated. Past Medical Family Social History Past Med/Fam/Surg Hx: No changes since H&P Allergies: Allergies No Known Drug Allergies Allergy (Verified 12/24/19 06:31) Review of Systems ROS: No change since H&P Vital Signs and I&O's Vital Signs: Temperature 101.5 F Pulse Rate 85 Respiratory Rate 26 Blood Pressure [Right Arm] 128/60 Blood Pressure [Left Arm] 131/67 Blood Pressure 124/67 O2 Sat by Pulse Oximetry 94 Intake and Output: Intake & Output 12/22/19 12/23/19 12/24/19 12/25/19 23:59 23:59 23:59 23:59 Intake Total 1701 / 1701 660 / 660 Output Total 700 / 700 200 / 200 Balance 1001 / 1001 460 / 460 Physical Exam Oriented: Normal Eyes: Normal Respiratory: Generalized, Diminished and Rhonchi Cardiovascular: Normal Auscultation: Bowel Sounds: Normal Tenderness: Normal Skin: Normal Musculoskeletal: Hip and Back:Midline Psychiatric: Normal Mood Description: Calm Affect: Normal Speech Pattern: Clear and Appropriate Laboratory and Diagnostics Result Diagrams: 12/25/19 05:03 12/25/19 05:03 Labs: Laboratory WBC 18.5 X10^3/uL (3.6-10.0) H 12/25/19 05:03 RBC 4.28 X10^6/uL (3.5-5.4) 12/25/19 05:03 Hgb 13.6 g/dL (12.0-16.0) 12/25/19 05:03 Hct 39.6 % (36.0-47.0) 12/25/19 05:03 MCV 92.5 fL (80.0-100.0) 12/25/19 05:03 MCH 31.7 pg (27.0-34.0) 12/25/19 05:03 MCHC 34.3 g/dL (33.0-35.0) 12/25/19 05:03 RDW 14.2 % (11.6-16.5) 12/25/19 05:03 Plt Count 327 X10^3/uL (150.0-450.0) 12/25/19 05:03 Plt Count Comment Adequate (ADEQUATE) 12/25/19 05:03 MPV 9.3 fL (7.4-11.0) 12/25/19 05:03 Neut % (Auto) 91.0 % (42.0-75.0) H 12/25/19 05:03 Lymph % (Auto) 5.3 % (21.0-51.0) L 12/25/19 05:03 [place] % (Auto) 3.1 % (0.0-13.0) 12/25/19 05:03 Eos % (Auto) 0.4 % (0.9-2.9) L 12/25/19 05:03 Baso % (Auto) 0.2 % (0.2-1.0) 12/25/19 05:03 Neut # (Auto) 16.8 x10^3/uL (2.2-4.8) H 12/25/19 05:03 Lymph # (Auto) 1.0 X10^3/uL (1.3-2.9) L 12/25/19 05:03 [place] # (Auto) 0.6 x10^3/uL (0.3-0.8) 12/25/19 05:03 Eos # (Auto) 0.1 x10^3/uL (0.0-0.2) 12/25/19 05:03 Baso # (Auto) 0.0 X10^3/uL (0.0-0.1) 12/25/19 05:03 Absolute Nucleated RBC 0.0 /100WBC 12/25/19 05:03 Total Counted 100 12/25/19 05:03 Neutrophils % (Manual) 87 % (39-76) H 12/25/19 05:03 Band Neutrophils % 4 % (0-10) 12/25/19 05:03 Lymphocytes % (Manual) 4 % (13-43) L 12/25/19 05:03 Monocytes % (Manual) 4 % (4-9) 12/25/19 05:03 Eosinophils % (Manual) 1 % (0-6) 12/25/19 05:03 Plt Morphology Comment Normal (NORMAL) 12/25/19 05:03 RBC Morphology Normal (NORMAL) 12/25/19 05:03 D-Dimer 2060 ng/mL (0-400) H* 12/24/19 12:54 Sodium 132 mmol/L (136-145) L 12/25/19 05:03 Corrected Sodium TNP 12/25/19 05:03 Potassium 4.2 mmol/L (3.5-5.1) 12/25/19 05:03 Chloride 99 mmol/L (98-107) 12/25/19 05:03 Carbon Dioxide 23.3 mmol/L (21-32) 12/25/19 05:03 BUN 20 mg/dL (7-18) H 12/25/19 05:03 Creatinine 0.93 mg/dL (0.55-1.02) 12/25/19 05:03 Est GFR (MDRD) Af Amer > 60 (>60) 12/25/19 05:03 Est GFR (MDRD) Non-Af > 60 (>60) 12/25/19 05:03 Glucose 85 mg/dL (65-99) 12/25/19 05:03 Lactic Acid 1.1 mmol/L (0.4-2.0) 12/24/19 07:10 Calcium 8.9 mg/dL (8.5-10.1) 12/25/19 05:03 Corrected Calcium 10.3 mg/dL (8.5-10.1) H 12/25/19 05:03 Magnesium 2.0 mg/dL (1.7-2.9) 12/25/19 05:03 Total Bilirubin 0.40 mg/dL (0.2-1.0) 12/25/19 05:03 AST 16 Units/L (15-37) 12/25/19 05:03 ALT 17 Units/L (12-78) 12/25/19 05:03 Alkaline Phosphatase 69 Units/L (46-116) 12/25/19 05:03 Creatine Kinase 51 Units/L (26-192) 12/24/19 19:30 CK-MB (CK-2) < 1.0 ng/mL (0-4.0) 12/24/19 19:30 CK/CKMB % Calc 2.0 % (<4) 12/24/19 19:30 Troponin I < 0.02 ng/mL (0-1.5) 12/24/19 19:30 C-Reactive Protein 353.90 mg/L (0-3.0) H 12/24/19 12:54 B-Natriuretic Peptide 84.4 pg/mL (0-79) H 12/24/19 07:10 Total Protein 7.0 g/dL (6.4-8.2) 12/25/19 05:03 Albumin 2.2 g/dL (3.4-5.0) L 12/25/19 05:03 Globulin 4.8 g/dL (2.5-4.5) H 12/25/19 05:03 Albumin/Globulin Ratio 0.5 Ratio (1.1-2.1) L 12/25/19 05:03 Specimen Type Catherized urine 12/24/19 08:08 Urine Color Dark yellow (YELLOW) 12/24/19 08:08 Urine Appearance Hazy (CLEAR) 12/24/19 08:08 Urine pH 5.0 (5.0 - 8.0) 12/24/19 08:08 Ur Specific [place] 1.020 (1.000-1.030) 12/24/19 08:08 Urine Protein 2+ (NEGATIVE) 12/24/19 08:08 Urine Glucose (UA) Negative (NEGATIVE) 12/24/19 08:08 Urine Ketones 3+ (NEGATIVE) 12/24/19 08:08 Urine Occult Blood 5+ (NEGATIVE) 12/24/19 08:08 Urine Nitrite Negative (NEGATIVE) 12/24/19 08:08 Urine Bilirubin 2+ (NEGATIVE) 12/24/19 08:08 Urine Urobilinogen 1+ (NORMAL) 12/24/19 08:08 Ur Leukocyte Esterase 1+ (NEGATIVE) 12/24/19 08:08 Urine RBC 10-20 /HPF (0-3) A 06/08/20 08:08 Urine WBC 3-5 /HPF (0-5) 12/24/19 08:08 Ur Squamous Epith Cells Rare /HPF (NEGATIVE) 12/24/19 08:08 Ur Renal Epithelial Cell Rare /HPF (NEGATIVE) 12/24/19 08:08 Amorphous Sediment Trace /HPF (NEGATIVE) 12/24/19 08:08 Urine Bacteria Trace /HPF (NEGATIVE) 12/24/19 08:08 Hyaline Casts Moderate /LPF (NEGATIVE) 12/24/19 08:08 Urine Mucus Many /HPF (NEGATIVE) 12/24/19 08:08 Ur Culture Indicated? No/not indicated 12/24/19 08:08 RSV Nasal Swab Negative (NEGATIVE) 12/24/19 07:05 Influenza Type A Ag Negative-presumptive (NEGATIVE) 12/24/19 07:05 Influenza Type B Ag Negative-presumptive (NEGATIVE) 12/24/19 07:05 SARS-CoV-2 (PCR) Negative (NEGATIVE) 12/24/19 07:52 S. pyogenes (TEM-PCR) Not detected (NOT DETECT) 12/24/19 07:05 Plan (1) Suspected COVID-19 virus infection: Status: Acute (2) Chest pain: Status: Acute Qualifiers: Chest pain type: precordial pain Qualified Code(s): R07.2 - Precordial pain (3) Hypokalemia: Status: Acute (4) Hypotension: Status: Acute Qualifiers: Hypotension type: unspecified hypotension type Qualified Code(s): I95.9 - Hypotension, unspecified (5) Fever: Status: Acute Qualifiers: Fever type: unspecified Qualified Code(s): R50.9 - Fever, unspecified (6) Left hip pain: Status: Chronic (7) History of asthma: Status: Chronic (8) Hyperlipidemia: Status: Chronic Qualifiers: Hyperlipidemia type: unspecified Qualified Code(s): E78.5 - Hyperl ipidemia, unspecified (9) GERD (gastroesophageal reflux disease): Status: Chronic Qualifiers: Esophagitis presence: without esophagitis Qualified Code(s): K21.9 - Gastro-esophageal reflux disease without esophagitis (10) Hypothyroidism: Status: Chronic Qualifiers: Hypothyroidism type: unspecified Qualified Code(s): E03.9 - Hypothyroidism, unspecified (11) Osteoarthritis: Status: Chronic Qualifiers: Osteoarthritis location: unspecified site Osteoarthritis type: unspecified Qualified Code(s): M19.90 - Unspecified osteoarthritis, unspecified site
[2019-12-25] MEDS: NEURONTIN CAP 100 MG PO SCH ×2 (09:15→21:57)
[2019-12-25] MEDS: ASPIRIN EC 81 MG PO SCH (09:15)
[2019-12-25] MEDS: SYNTHROID 50 mcg TAB PO SCH (09:15)
[2019-12-25] MEDS: K-DUR TAB 20 MEQ PO SCH (09:16)
[2019-12-25] MEDS: LOVENOX INJ 40 MG SYR SC SCH (09:16)
[2019-12-25] MEDS: PriLOSEC PO SCH (09:17)
[2019-12-25] MEDS: PREDNISONE TAB 20 MG PO SCH (09:17)
[2019-12-25] MEDS: ZESTORETIC 20/25 MG PO SCH (09:21)
[2019-12-25] MEDS: ZITHROMAX TAB 250 MG PO SCH (09:21)
[2019-12-25] MEDS: ZOSYN VIAL 3.375 GRAMS 3.375 G in NS 100 ML IV 100 ML IV SCH ×3 (10:05→22:00)
[2019-12-25] MEDS: NORCO 10/325 TAB PO PRN (15:45)
[2019-12-25] MEDS: NEURONTIN CAP 400 MG PO SCH (21:57)
[2019-12-25] MEDS: AMBIEN PO SCH (21:57)
[2019-12-25] MEDS: LIPITOR TAB 10 MG PO SCH (21:57)
[2019-12-26] MEDS: ZOSYN VIAL 3.375 GRAMS 3.375 G in NS 100 ML IV 100 ML IV SCH ×3 (05:49→21:14)
[2019-12-26 06:20] LABS: BASOPHILS # (AUTO) 0.1 X10^3/uL (0.0-0.1); BASOPHILS % (AUTO) 0.4 % (0.2-1.0); EOSINOPHILS % (AUTO) 0.2 % (0.9-2.9); HEMATOCRIT 38.1 % (36.0-47.0); LYMPHOCYTES # (AUTO) 1.1 X10^3/uL (1.3-2.9); MEAN CORPUSCULAR HEMOGLOBIN 31.5 pg (27.0-34.0); MEAN CORPUSCULAR HGB CONC 34.1 g/dL (33.0-35.0); MEAN CORPUSCULAR VOLUME 92.2 fL (80.0-100.0); MEAN PLATELET VOLUME 8.9 fL (7.4-11.0); MONOCYTES # (AUTO) 0.7 x10^3/uL (0.3-0.8); MONOCYTES % (AUTO) 4.3 % (0.0-13.0); NEUTROPHILS # (AUTO) 13.4 x10^3/uL (2.2-4.8); NEUTROPHILS % (AUTO) 88.1 % (42.0-75.0); PLATELET COUNT 352 X10^3/uL (150.0-450.0); RED BLOOD COUNT 4.14 X10^6/uL (3.5-5.4); RED CELL DISTRIBUTION WIDTH 14.2 % (11.6-16.5); WHITE BLOOD COUNT 15.2 X10^3/uL (3.6-10.0)
[2019-12-26 06:41] LABS: BLOOD UREA NITROGEN 21 mg/dL (7-18); CALCIUM 9.4 mg/dL (8.5-10.1); CARBON DIOXIDE 25.6 mmol/L (21-32); CHLORIDE 99 mmol/L (98-107); CREATININE 0.75 mg/dL (0.55-1.02); SODIUM 133 mmol/L (136-145); eGFR NON BLACK RACES > 60 (>60)
--- NOTE | 2019-12-26 08:13 | PCM.PROG ---
Progress Note Progress Note for Day of Date of Exam: 12/26/19 Subjective Subjective: Patient seen at bedside, no overnight events. Patient states she feels better, appetite improving. Repeat COVID-19 test is negative. Patient has been ambulating to the bedside commode, grubbs removed yesterday. Afebrile overnight. Labs: WBC trending down, K: 3.8 Na:133 Plan: transfer to med-surg, continue IV abx and prednisone, send sputum culture, follow blood cultures. Add shay, RT and PT consult. Advised patient to get up and ambulate to see how her breathing is with exertion. Continue using IS Past Medical Family Social History Past Med/Fam/Surg Hx: No changes since H&P Allergies: Allergies No Known Drug Allergies Allergy (Verified 12/24/19 06:31) Review of Systems ROS: No change since H&P Vital Signs and I&O's Vital Signs: Temperature 98.9 F Pulse Rate 70 Respiratory Rate 17 Blood Pressure [Right Arm] 128/60 Blood Pressure [Left Arm] 131/67 Blood Pressure 141/84 O2 Sat by Pulse Oximetry 94 Intake and Output: Intake & Output 12/23/19 12/24/19 12/25/19 12/26/19 23:59 23:59 23:59 23:59 Intake Total 1701 / 1701 3239 / 3239 265 / 265 Output Total 700 / 700 725 / 725 Balance 1001 / 1001 2514 / 2514 265 / 265 Physical Exam Oriented: Normal Eyes: Normal Respiratory: Generalized and Rhonchi Cardiovascular: Normal Auscultation: Bowel Sounds: Normal Tenderness: Normal Skin: Normal Musculoskeletal: Hip and Back:Midline Psychiatric: Normal Mood Description: Calm Affect: Normal Speech Pattern: Clear and Appropriate Laboratory and Diagnostics Result Diagrams: 12/26/19 04:30 12/26/19 04:30 Labs: Laboratory WBC 15.2 X10^3/uL (3.6-10.0) H 12/26/19 04:30 RBC 4.14 X10^6/uL (3.5-5.4) 12/26/19 04:30 Hgb 13.0 g/dL (12.0-16.0) 12/26/19 04:30 Hct 38.1 % (36.0-47.0) 12/26/19 04:30 MCV 92.2 fL (80.0-100.0) 12/26/19 04:30 MCH 31.5 pg (27.0-34.0) 12/26/19 04:30 MCHC 34.1 g/dL (33.0-35.0) 12/26/19 04:30 RDW 14.2 % (11.6-16.5) 12/26/19 04:30 Plt Count 352 X10^3/uL (150.0-450.0) 12/26/19 04:30 Plt Count Comment Adequate (ADEQUATE) 12/25/19 05:03 MPV 8.9 fL (7.4-11.0) 12/26/19 04:30 Neut % (Auto) 88.1 % (42.0-75.0) H 12/26/19 04:30 Lymph % (Auto) 7.0 % (21.0-51.0) L 12/26/19 04:30 [place] % (Auto) 4.3 % (0.0-13.0) 12/26/19 04:30 Eos % (Auto) 0.2 % (0.9-2.9) L 12/26/19 04:30 Baso % (Auto) 0.4 % (0.2-1.0) 12/26/19 04:30 Neut # (Auto) 13.4 x10^3/uL (2.2-4.8) H 12/26/19 04:30 Lymph # (Auto) 1.1 X10^3/uL (1.3-2.9) L 12/26/19 04:30 [place] # (Auto) 0.7 x10^3/uL (0.3-0.8) 12/26/19 04:30 Eos # (Auto) 0.0 x10^3/uL (0.0-0.2) 12/26/19 04:30 Baso # (Auto) 0.1 X10^3/uL (0.0-0.1) 12/26/19 04:30 Absolute Nucleated RBC 0.0 /100WBC 12/26/19 04:30 Total Counted 100 12/25/19 05:03 Neutrophils % (Manual) 87 % (39-76) H 12/25/19 05:03 Band Neutrophils % 4 % (0-10) 12/25/19 05:03 Lymphocytes % (Manual) 4 % (13-43) L 12/25/19 05:03 Monocytes % (Manual) 4 % (4-9) 12/25/19 05:03 Eosinophils % (Manual) 1 % (0-6) 12/25/19 05:03 Plt Morphology Comment Normal (NORMAL) 12/25/19 05:03 RBC Morphology Normal (NORMAL) 12/25/19 05:03 D-Dimer 2060 ng/mL (0-400) H* 12/24/19 12:54 Sodium 133 mmol/L (136-145) L 12/26/19 04:30 Corrected Sodium TNP 12/26/19 04:30 Potassium 3.8 mmol/L (3.5-5.1) 12/26/19 04:30 Chloride 99 mmol/L (98-107) 12/26/19 04:30 Carbon Dioxide 25.6 mmol/L (21-32) 12/26/19 04:30 BUN 21 mg/dL (7-18) H 12/26/19 04:30 Creatinine 0.75 mg/dL (0.55-1.02) 12/26/19 04:30 Est GFR (MDRD) Af Amer > 60 (>60) 12/26/19 04:30 Est GFR (MDRD) Non-Af > 60 (>60) 12/26/19 04:30 Glucose 81 mg/dL (65-99) 12/26/19 04:30 Lactic Acid 1.1 mmol/L (0.4-2.0) 12/24/19 07:10 Calcium 9.4 mg/dL (8.5-10.1) 12/26/19 04:30 Corrected Calcium 10.3 mg/dL (8.5-10.1) H 12/25/19 05:03 Magnesium 2.0 mg/dL (1.7-2.9) 12/25/19 05:03 Total Bilirubin 0.40 mg/dL (0.2-1.0) 12/25/19 05:03 AST 16 Units/L (15-37) 12/25/19 05:03 ALT 17 Units/L (12-78) 12/25/19 05:03 Alkaline Phosphatase 69 Units/L (46-116) 12/25/19 05:03 Creatine Kinase 51 Units/L (26-192) 12/24/19 19:30 CK-MB (CK-2) < 1.0 ng/mL (0-4.0) 12/24/19 19:30 CK/CKMB % Calc 2.0 % (<4) 12/24/19 19:30 Troponin I < 0.02 ng/mL (0-1.5) 12/24/19 19:30 C-Reactive Protein 353.90 mg/L (0-3.0) H 12/24/19 12:54 B-Natriuretic Peptide 84.4 pg/mL (0-79) H 12/24/19 07:10 Total Protein 7.0 g/dL (6.4-8.2) 12/25/19 05:03 Albumin 2.2 g/dL (3.4-5.0) L 12/25/19 05:03 Globulin 4.8 g/dL (2.5-4.5) H 12/25/19 05:03 Albumin/Globulin Ratio 0.5 Ratio (1.1-2.1) L 12/25/19 05:03 Specimen Type Catherized urine 12/24/19 08:08 Urine Color Dark yellow (YELLOW) 12/24/19 08:08 Urine Appearance Hazy (CLEAR) 12/24/19 08:08 Urine pH 5.0 (5.0 - 8.0) 12/24/19 08:08 Ur Specific [place] 1.020 (1.000-1.030) 12/24/19 08:08 Urine Protein 2+ (NEGATIVE) 12/24/19 08:08 Urine Glucose (UA) Negative (NEGATIVE) 12/24/19 08:08 Urine Ketones 3+ (NEGATIVE) 12/24/19 08:08 Urine Occult Blood 5+ (NEGATIVE) 12/24/19 08:08 Urine Nitrite Negative (NEGATIVE) 12/24/19 08:08 Urine Bilirubin 2+ (NEGATIVE) 12/24/19 08:08 Urine Urobilinogen 1+ (NORMAL) 12/24/19 08:08 Ur Leukocyte Esterase 1+ (NEGATIVE) 12/24/19 08:08 Urine RBC 10-20 /HPF (0-3) A 12/24/19 08:08 Urine WBC 3-5 /HPF (0-5) 12/24/19 08:08 Ur Squamous Epith Cells Rare /HPF (NEGATIVE) 12/24/19 08:08 Ur Renal Epithelial Cell Rare /HPF (NEGATIVE) 12/24/19 08:08 Amorphous Sediment Trace /HPF (NEGATIVE) 12/24/19 08:08 Urine Bacteria Trace /HPF (NEGATIVE) 12/24/19 08:08 Hyaline Casts Moderate /LPF (NEGATIVE) 12/24/19 08:08 Urine Mucus Many /HPF (NEGATIVE) 12/24/19 08:08 Ur Culture Indicated? No/not indicated 12/24/19 08:08 RSV Nasal Swab Negative (NEGATIVE) 12/24/19 07:05 Influenza Type A Ag Negative-presumptive (NEGATIVE) 12/24/19 07:05 Influenza Type B Ag Negative-presumptive (NEGATIVE) 12/24/19 07:05 SARS-CoV-2 (PCR) Negative (NEGATIVE) 12/24/19 07:52 S. pyogenes (TEM-PCR) Not detected (NOT DETECT) 12/24/19 07:05 Plan (1) Pneumonia: Status: Acute Qualifiers: Laterality: right Pneumonia type: due to unspecified organism Lung location: lower lobe of lung Qualified Code(s): J18.9 - Pneumonia, unspecified organism (2) Chest pain: Status: Acute Qualifiers: Chest pain type: precordial pain Qualified Code(s): R07.2 - Precordial pain (3) Hypokalemia: Status: Acute (4) Hypotension: Status: Acute Qualifiers: Hypotension type: unspecified hypotension type Qualified Code(s): I95.9 - Hypotension, unspecified (5) Fever: Status: Acute Qualifiers: Fever type: unspecified Qualified Code(s): R50.9 - Fever, unspecified (6) Left hip pain: Status: Chronic (7) History of asthma: Status: Chronic (8) Hyperlipidemia: Status: Chronic Qualifiers: Hyperlipidemia type: unspecified Qualified Code(s): E78.5 - Hyperlipidemia, unspecified (9) GERD (gastroesophageal reflux disease): Status: Chronic Qualifiers: Esophagitis presence: without esophagitis Qualified Code(s): K21.9 - Gastro-esophageal reflux disease without esophagitis (10) Hypothyroidism: Status: Chronic Qualifiers: Hypothyroidism type: unspecified Qualified Code(s): E03.9 - Hypothyr oidism, unspecified (11) Osteoarthritis: Status: Chronic Qualifiers: Osteoarthritis location: unspecified site Osteoarthritis type: unspecified Qualified Code(s): M19.90 - Unspecified osteoarthritis, unspecified site
[2019-12-26] MEDS: K-DUR TAB 20 MEQ PO SCH (08:44)
[2019-12-26] MEDS: ASPIRIN EC 81 MG PO SCH (08:44)
[2019-12-26] MEDS: PREDNISONE TAB 20 MG PO SCH (08:45)
[2019-12-26] MEDS: LOVENOX INJ 40 MG SYR SC SCH (08:45)
[2019-12-26] MEDS: NEURONTIN CAP 100 MG PO SCH ×2 (08:45→21:14)
[2019-12-26] MEDS: NORCO 10/325 TAB PO PRN (08:45)
[2019-12-26] MEDS: PriLOSEC PO SCH (08:46)
[2019-12-26] MEDS: SYNTHROID 50 mcg TAB PO SCH (08:46)
[2019-12-26] MEDS: ZESTORETIC 20/25 MG PO SCH (08:46)
[2019-12-26] MEDS: ZITHROMAX TAB 250 MG PO SCH (08:46)
[2019-12-26] MEDS: DUONEB 0.5 MG/3 MG (3 mL) NEB SCH ×3 (09:55→18:12)
[2019-12-26] MEDS ORDERED: NS 250 ML IV 250 ML IV ONE (20:17)
[2019-12-26] MEDS: AMBIEN PO SCH (21:13)
[2019-12-26] MEDS: NEURONTIN CAP 400 MG PO SCH (21:14)
[2019-12-26] MEDS: LIPITOR TAB 10 MG PO SCH (21:14)
[2019-12-27] MEDS: DUONEB 0.5 MG/3 MG (3 mL) NEB SCH ×3 (01:02→15:45)
[2019-12-27] MEDS: ZOSYN VIAL 3.375 GRAMS 3.375 G in NS 100 ML IV 100 ML IV SCH (05:27)
[2019-12-27 06:19] LABS: BASOPHILS % (AUTO) 0.2 % (0.2-1.0); EOSINOPHILS % (AUTO) 0.1 % (0.9-2.9); HEMATOCRIT 38.6 % (36.0-47.0); HEMOGLOBIN 12.9 g/dL (12.0-16.0); LYMPHOCYTES # (AUTO) 1.5 X10^3/uL (1.3-2.9); LYMPHOCYTES % (AUTO) 9.8 % (21.0-51.0); MEAN CORPUSCULAR HEMOGLOBIN 31.1 pg (27.0-34.0); MEAN CORPUSCULAR HGB CONC 33.5 g/dL (33.0-35.0); MEAN CORPUSCULAR VOLUME 92.7 fL (80.0-100.0); MEAN PLATELET VOLUME 8.6 fL (7.4-11.0); MONOCYTES # (AUTO) 0.7 x10^3/uL (0.3-0.8); MONOCYTES % (AUTO) 4.8 % (0.0-13.0); NEUTROPHILS # (AUTO) 13.2 x10^3/uL (2.2-4.8); NEUTROPHILS % (AUTO) 85.1 % (42.0-75.0); PLATELET COUNT 421 X10^3/uL (150.0-450.0); RED BLOOD COUNT 4.16 X10^6/uL (3.5-5.4); RED CELL DISTRIBUTION WIDTH 14.1 % (11.6-16.5); WHITE BLOOD COUNT 15.5 X10^3/uL (3.6-10.0)
[2019-12-27 06:22] LABS: BLOOD UREA NITROGEN 18 mg/dL (7-18); CALCIUM 9.5 mg/dL (8.5-10.1); CARBON DIOXIDE 29.8 mmol/L (21-32); CHLORIDE 100 mmol/L (98-107); SODIUM 135 mmol/L (136-145); eGFR NON BLACK RACES > 60 (>60)
[2019-12-27] MEDS: LOVENOX INJ 40 MG SYR SC SCH (09:30)
[2019-12-27] MEDS: ZESTORETIC 20/25 MG PO SCH (09:31)
[2019-12-27] MEDS: NEURONTIN CAP 100 MG PO SCH (09:31)
[2019-12-27] MEDS: SYNTHROID 50 mcg TAB PO SCH (09:33)
[2019-12-27] MEDS: PREDNISONE TAB 20 MG PO SCH (09:33)
[2019-12-27] MEDS: K-DUR TAB 20 MEQ PO SCH (09:33)
[2019-12-27] MEDS: PriLOSEC PO SCH (09:33)
[2019-12-27] MEDS: ZITHROMAX TAB 250 MG PO SCH (09:33)
[2019-12-27] MEDS: ASPIRIN EC 81 MG PO SCH (09:34)
[2019-12-27] MEDS: NORCO 10/325 TAB PO PRN (09:39)
--- NOTE | 2019-12-27 11:53 | PCM.PROG ---
Progress Note Progress Note for Day of Date of Exam: 12/27/19 Subjective Subjective: Patient seen at bedside, no overnight events. She states she is doing a lot better. She has been walking in the room a little bit. No fever overnight. She states appetite has improved, diarrhea has resolved. She is still on 2 L NC. She states breathing is better, still coughing white sputum. Labs: WBC still at 15.5 , normal renal function and potassium Blood cultures neg, Sputum: normal natalie Plan: continue PT/OT, RT consult for home oxygen eval, possible DC this afternoon. Patient does live alone but does have family near by. She states she is able to do her chores at home. Past Medical Family Social History Past Med/Fam/Surg Hx: No changes since H&P Allergies: Allergies No Known Drug Allergies Allergy (Verified 12/24/19 06:31) Review of Systems ROS: No change since H&P Vital Signs and I&O's Vital Signs: Temperature 98.6 F Pulse Rate 62 Respiratory Rate 18 Blood Pressure [Right Arm] 128/60 Blood Pressure [Left Arm] 131/67 Blood Pressure 139/75 O2 Sat by Pulse Oximetry 99 Intake and Output: Intake & Output 12/24/19 12/25/19 12/26/19 12/27/19 23:59 23:59 23:59 23:59 Intake Total 1701 / 1701 3239 / 3239 805 / 805 270 / 270 Output Total 700 / 700 725 / 725 Balance 1001 / 1001 2514 / 2514 805 / 805 270 / 270 Physical Exam Oriented: Normal Eyes: Normal Respiratory: Generalized and Rhonchi (improved ) Cardiovascular: Normal Auscultation: Bowel Sounds: Normal Tenderness: Normal Skin: Normal Musculoskeletal: Hip and Back:Midline Psychiatric: Normal Mood Description: Calm Affect: Normal Speech Pattern: Clear and Appropriate Laboratory and Diagnostics Result Diagrams: 12/27/19 05:20 12/27/19 05:20 Labs: 12/26/19 12:05 Sputum - Expectorated Sputum Sputum Culture - Preliminary 12/26/19 12:05 Sputum - Expectorated Sputum - Final 12/24/19 07:13 Blood Blood Culture - Preliminary 12/24/19 07:10 Blood Blood Culture - Preliminary Laboratory WBC 15.5 X10^3/uL (3.6-10.0) H 12/27/19 05:20 RBC 4.16 X10^6/uL (3.5-5.4) 12/27/19 05:20 Hgb 12.9 g/dL (12.0-16.0) 12/27/19 05:20 Hct 38.6 % (36.0-47.0) 12/27/19 05:20 MCV 92.7 fL (80.0-100.0) 12/27/19 05:20 MCH 31.1 pg (27.0-34.0) 12/27/19 05:20 MCHC 33.5 g/dL (33.0-35.0) 12/27/19 05:20 RDW 14.1 % (11.6-16.5) 12/27/19 05:20 Plt Count 421 X10^3/uL (150.0-450.0) 12/27/19 05:20 Plt Count Comment Adequate (ADEQUATE) 12/25/19 05:03 MPV 8.6 fL (7.4-11.0) 12/27/19 05:20 Neut % (Auto) 85.1 % (42.0-75.0) H 12/27/19 05:20 Lymph % (Auto) 9.8 % (21.0-51.0) L 12/27/19 05:20 [place] % (Auto) 4.8 % (0.0-13.0) 12/27/19 05:20 Eos % (Auto) 0.1 % (0.9-2.9) L 12/27/19 05:20 Baso % (Auto) 0.2 % (0.2-1.0) 12/27/19 05:20 Neut # (Auto) 13.2 x10^3/uL (2.2-4.8) H 12/27/19 05:20 Lymph # (Auto) 1.5 X10^3/uL (1.3-2.9) 12/27/19 05:20 [place] # (Auto) 0.7 x10^3/uL (0.3-0.8) 12/27/19 05:20 Eos # (Auto) 0.0 x10^3/uL (0.0-0.2) 12/27/19 05:20 Baso # (Auto) 0.0 X10^3/uL (0.0-0.1) 12/27/19 05:20 Absolute Nucleated RBC 0.0 /100WBC 12/27/19 05:20 Total Counted 100 12/25/19 05:03 Neutrophils % (Manual) 87 % (39-76) H 12/25/19 05:03 Band Neutrophils % 4 % (0-10) 12/25/19 05:03 Lymphocytes % (Manual) 4 % (13-43) L 12/25/19 05:03 Monocytes % (Manual) 4 % (4-9) 12/25/19 05:03 Eosinophils % (Manual) 1 % (0-6) 12/25/19 05:03 Plt Morphology Comment Normal (NORMAL) 12/25/19 05:03 RBC Morphology Normal (NORMAL) 12/25/19 05:03 D-Dimer 2060 ng/mL (0-400) H* 12/24/19 12:54 Sodium 135 mmol/L (136-145) L 12/27/19 05:20 Corrected Sodium TNP 12/27/19 05:20 Potassium 3.7 mmol/L (3.5-5.1) 12/27/19 05:20 Chloride 100 mmol/L (98-107) 12/27/19 05:20 Carbon Dioxide 29.8 mmol/L (21-32) 12/27/19 05:20 BUN 18 mg/dL (7-18) 12/27/19 05:20 Creatinine 0.70 mg/dL (0.55-1.02) 12/27/19 05:20 Est GFR (MDRD) Af Amer > 60 (>60) 12/27/19 05:20 Est GFR (MDRD) Non-Af > 60 (>60) 12/27/19 05:20 Glucose 88 mg/dL (65-99) 12/27/19 05:20 Lactic Acid 1.1 mmol/L (0.4-2.0) 12/24/19 07:10 Calcium 9.5 mg/dL (8.5-10.1) 12/27/19 05:20 Corrected Calcium 10.3 mg/dL (8.5-10.1) H 12/25/19 05:03 Magnesium 2.0 mg/dL (1.7-2.9) 12/25/19 05:03 Total Bilirubin 0.40 mg/dL (0.2-1.0) 12/25/19 05:03 AST 16 Units/L (15-37) 12/25/19 05:03 ALT 17 Units/L (12-78) 12/25/19 05:03 Alkaline Phosphatase 69 Units/L (46-116) 12/25/19 05:03 Creatine Kinase 51 Units/L (26-192) 12/24/19 19:30 CK-MB (CK-2) < 1.0 ng/mL (0-4.0) 12/24/19 19:30 CK/CKMB % Calc 2.0 % (<4) 12/24/19 19:30 Troponin I < 0.02 ng/mL (0-1.5) 12/24/19 19:30 C-Reactive Protein 353.90 mg/L (0-3.0) H 12/24/19 12:54 B-Natriuretic Peptide 84.4 pg/mL (0-79) H 12/24/19 07:10 Total Protein 7.0 g/dL (6.4-8.2) 12/25/19 05:03 Albumin 2.2 g/dL (3.4-5.0) L 12/25/19 05:03 Globulin 4.8 g/dL (2.5-4.5) H 12/25/19 05:03 Albumin/Globulin Ratio 0.5 Ratio (1.1-2.1) L 12/25/19 05:03 Specimen Type Catherized urine 12/24/19 08:08 Urine Color Dark yellow (YELLOW) 12/24/19 08:08 Urine Appearance Hazy (CLEAR) 12/24/19 08:08 Urine pH 5.0 (5.0 - 8.0) 12/24/19 08:08 Ur Specific [place] 1.020 (1.000-1.030) 12/24/19 08:08 Urine Protein 2+ (NEGATIVE) 12/24/19 08:08 Urine Glucose (UA) Negative (NEGATIVE) 12/24/19 08:08 Urine Ketones 3+ (NEGATIVE) 12/24/19 08:08 Urine Occult Blood 5+ (NEGATIVE) 12/24/19 08:08 Urine Nitrite Negative (NEGATIVE) 12/24/19 08:08 Urine Bilirubin 2+ (NEGATIVE) 12/24/19 08:08 Urine Urobilinogen 1+ (NORMAL) 12/24/19 08:08 Ur Leukocyte Esterase 1+ (NEGATIVE) 12/24/19 08:08 Urine RBC 10-20 /HPF (0-3) A 12/24/19 08:08 Urine WBC 3-5 /HPF (0-5) 12/24/19 08:08 Ur Squamous Epith Cells Rare /HPF (NEGATIVE) 12/24/19 08:08 Ur Renal Epithelial Cell Rare /HPF (NEGATIVE) 12/24/19 08:08 Amorphous Sediment Trace /HPF (NEGATIVE) 12/24/19 08:08 Urine Bacteria Trace /HPF (NEGATIVE) 12/24/19 08:08 Hyaline Casts Moderate /LPF (NEGATIVE) 12/24/19 08:08 Urine Mucus Many /HPF (NEGATIVE) 12/24/19 08:08 Ur Culture Indicated? No/not indicated 12/24/19 08:08 RSV Nasal Swab Negative (NEGATIVE) 12/24/19 07:05 Influenza Type A Ag Negative-presumptive (NEGATIVE) 12/24/19 07:05 Influenza Type B Ag Negative-presumptive (NEGATIVE) 12/24/19 07:05 SARS-CoV-2 (PCR) Negative (NEGATIVE) 12/24/19 07:52 S. pyogenes (TEM-PCR) Not detected (NOT DETECT) 12/24/19 07:05 Miscellaneous Test Covid 19 12/24/19 09:16 Plan (1) COPD exacerbation: Status: Acute (2) Pneumonia: Status: Acute Qualifiers: Laterality: right Lung location: lower lobe of lung Pneumonia type: due to unspecified organism Qualified Code(s): J18.9 - Pneumonia, unspecified organism (3) Chest pain: Status: Acute Qualifiers: Chest pain type: precordial pain Qualified Code(s): R07.2 - Precordial pain (4) Hypokalemia: Status: Acute (5) Hypotension: Status: Acute Qualifiers: Hypotension type: unspecified hypotension type Qualified Code(s): I95.9 - Hypotension, unspecified (6) Fever: Status: Acute Qualifiers: Fever type: unspecified Qualified Code(s): R50.9 - Fever, unspecified (7) Left hip pain: Status: Chronic (8) History of asthma: Status: Chronic (9) Hyperlipidemia: Status: Chronic Qualifiers: Hyperlipidemia type: unspecified Qualified Code(s): E78.5 - Hyperlipidemia, unspecified (10) GERD (gastroesophageal reflux disease): Status: Chronic Qualifiers: Esophagitis presence: without esophagitis Qualified Code(s): K21.9 - Gastro-esophageal reflux disease without esophagitis (11) Hypothyroidism: Status: Chronic Qualifiers: Hypothyroidism type: unspecified Qualified Code(s): E03.9 - Hypothyroidism, unspecified (12) Osteoarthritis: Status: Chronic Qualifiers: Osteoarthritis location: unspecified site Osteoarthritis type: unsp ecified Qualified Code(s): M19.90 - Unspecified osteoarthritis, unspecified site
[2019-12-27 12:37] VITALS: BP 137/76
--- NOTE | 2019-12-27 14:38 | W.DIS.FURT ---
Summary of Discharge Admission Diagnosis Vital Signs: Vital Signs (72 hours) 12/24/19 14:45 12/24/19 15:00 12/24/19 15:15 Temperature Pulse Rate 71 70 75 Respiratory Rate 28 H 29 H 19 Blood Pressure O2 Sat by Pulse Oximetry 93 L 93 L 94 L 12/24/19 15:30 12/24/19 15:31 12/24/19 16:00 Temperature 99.7 F H Pulse Rate 75 79 83 Respiratory Rate 27 H 36 H 52 H Blood Pressure 126/90 O2 Sat by Pulse Oximetry 94 L 95 12/24/19 16:15 12/24/19 16:20 12/24/19 16:30 Temperature Pulse Rate 75 80 75 Respiratory Rate 18 19 21 Blood Pressure 139/64 O2 Sat by Pulse Oximetry 95 96 94 L 12/24/19 16:45 12/24/19 17:00 12/24/19 17:15 Temperature Pulse Rate 75 84 82 Respiratory Rate 18 25 H 23 Blood Pressure 141/69 O2 Sat by Pulse Oximetry 94 L 90 L 94 L 12/24/19 17:30 12/24/19 17:45 12/24/19 18:00 Temperature Pulse Rate 75 74 76 Respiratory Rate 23 31 H 35 H Blood Pressure O2 Sat by Pulse Oximetry 93 L 93 L 95 12/24/19 18:15 12/24/19 19:00 12/24/19 20:00 Temperature 101.5 F H Pulse Rate 84 82 84 Respiratory Rate 19 18 24 Blood Pressure 144/68 141/69 O2 Sat by Pulse Oximetry 96 97 90 L 12/24/19 20:35 12/24/19 21:00 12/24/19 21:18 Temperature Pulse Rate 81 85 Respiratory Rate 21 18 Blood Pressure 141/70 O2 Sat by Pulse Oximetry 96 94 L 12/24/19 22:00 12/24/19 22:18 12/24/19 23:00 Temperature 100.0 F H Pulse Rate 89 86 Respiratory Rate 24 20 28 H Blood Pressure 131/61 112/58 O2 Sat by Pulse Oximetry 94 L 93 L 12/25/19 00:00 12/25/19 01:00 12/25/19 02:00 Temperature 99.3 F Pulse Rate 86 73 77 Respiratory Rate 26 H 24 24 Blood Pressure 114/59 90/45 125/58 O2 Sat by Pulse Oximetry 94 L 93 L 93 L 12/25/19 03:00 12/25/19 04:00 12/25/19 04:16 Temperature 101.5 F H Pulse Rate 80 82 Respiratory Rate 24 24 20 Blood Pressure 132/55 117/56 O2 Sat by Pulse Oximetry 93 L 94 L 12/25/19 05:00 12/25/19 05:16 12/25/19 06:00 Temperature Pulse Rate 95 H 92 H Respiratory Rate 26 H 24 24 Blood Pressure 134/71 125/62 O2 Sat by Pulse Oximetry 95 95 12/25/19 07:00 12/25/19 07:31 12/25/19 08:00 Temperature 99.7 F H Pulse Rate 86 85 80 Respiratory Rate 27 H 26 H 26 H Blood Pressure 124/67 128/78 O2 Sat by Pulse Oximetry 92 L 94 L 93 L 12/25/19 09:00 12/25/19 09:25 12/25/19 10:00 Temperature Pulse Rate 74 84 77 Respiratory Rate 41 H 34 H Blood Pressure 124/58 116/53 O2 Sat by Pulse Oximetry 94 L 97 93 L 12/25/19 11:00 12/25/19 11:15 12/25/19 12:00 Temperature 100.1 F H Pulse Rate 88 77 71 Respiratory Rate 27 H 31 H 28 H Blood Pressure 129/62 144/70 O2 Sat by Pulse Oximetry 94 L 94 L 93 L 12/25/19 12:46 12/25/19 13:00 12/25/19 13:40 Temperature Pulse Rate 83 71 76 Respiratory Rate 34 H 27 H Blood Pressure 128/63 O2 Sat by Pulse Oximetry 97 96 97 12/25/19 13:55 12/25/19 14:00 12/25/19 15:00 Temperature Pulse Rate 73 72 69 Respiratory Rate 26 H 22 23 Blood Pressure 114/67 130/66 O2 Sat by Pulse Oximetry 95 95 94 L 12/25/19 15:45 12/25/19 16:00 12/25/19 16:45 Temperature 98.0 F Pulse Rate 64 Respiratory Rate 33 H 20 19 Blood Pressure 115/66 O2 Sat by Pulse Oximetry 95 12/25/19 17:00 12/25/19 18:00 12/25/19 18:01 Temperature Pulse Rate 60 69 64 Respiratory Rate 22 20 Blood Pressure 106/52 143/65 O2 Sat by Pulse Oximetry 95 95 95 12/25/19 18:13 12/25/19 19:00 12/25/19 20:00 Temperature 98.0 F Pulse Rate 69 66 65 Respiratory Rate 24 15 18 Blood Pressure 118/63 119/66 O2 Sat by Pulse Oximetry 95 94 L 95 12/25/19 20:40 12/25/19 21:00 12/25/19 21:15 Temperature Pulse Rate 70 64 62 Respiratory Rate 20 20 Blood Pressure 125/68 O2 Sat by Pulse Oximetry 96 96 95 12/25/19 22:00 12/25/19 22:14 12/25/19 23:00 Temperature Pulse Rate 63 65 62 Respiratory Rate 21 22 25 H Blood Pressure 131/60 117/66 O2 Sat by Pulse Oximetry 95 94 L 94 L 12/26/19 00:00 12/26/19 00:54 12/26/19 01:00 Temperature 98.2 F Pulse Rate 62 67 65 Respiratory Rate 22 25 H 30 H Blood Pressure 138/73 125/58 O2 Sat by Pulse Oximetry 97 94 L 94 L 12/26/19 01:02 12/26/19 02:00 12/26/19 02:41 Temperature Pulse Rate 66 63 65 Respiratory Rate 22 21 24 Blood Pressure 126/57 O2 Sat by Pulse Oximetry 95 95 96 12/26/19 03:00 12/26/19 03:25 12/26/19 04:00 Temperature 98.2 F Pulse Rate 62 81 65 Respiratory Rate 24 16 15 Blood Pressure 111/58 141/68 O2 Sat by Pulse Oximetry 97 97 93 L 12/26/19 05:00 12/26/19 06:20 12/26/19 06:57 Temperature Pulse Rate 68 71 Respiratory Rate 17 20 Blood Pressure 134/63 138/79 O2 Sat by Pulse Oximetry 94 L 95 12/26/19 07:00 12/26/19 07:51 12/26/19 08:00 Temperature 98.9 F Pulse Rate 67 70 74 Respiratory Rate 18 17 27 H Blood Pressure 141/84 152/85 O2 Sat by Pulse Oximetry 95 94 L 95 12/26/19 08:45 12/26/19 09:00 12/26/19 09:31 Temperature Pulse Rate 74 Respiratory Rate 18 25 H Blood Pressure 135/69 O2 Sat by Pulse Oximetry 92 L 12/26/19 09:45 12/26/19 09:55 12/26/19 10:00 Temperature Pulse Rate 79 73 Respiratory Rate 24 24 Blood Pressure 145/68 O2 Sat by Pulse Oximetry 97 94 L 12/26/19 11:00 12/26/19 11:58 12/26/19 12:00 Temperature 98.7 F Pulse Rate 81 79 72 Respiratory Rate 12 19 16 Blood Pressure 137/68 134/63 O2 Sat by Pulse Oximetry 94 L 94 L 92 L 12/26/19 12:05 12/26/19 12:24 12/26/19 13:00 Temperature Pulse Rate 78 84 77 Respiratory Rate 27 H 16 Blood Pressure 131/64 O2 Sat by Pulse Oximetry 92 L 95 94 L 12/26/19 13:18 12/26/19 16:00 12/26/19 20:00 Temperature 97.9 F 98.7 F Pulse Rate 79 73 89 Respiratory Rate 28 H 20 20 Blood Pressure 129/81 150/74 O2 Sat by Pulse Oximetry 94 L 92 L 96 12/26/19 21:00 12/26/19 23:56 12/27/19 04:00 Temperature 98.3 F 97.5 F L Pulse Rate 80 81 64 Respiratory Rate 20 18 Blood Pressure 129/75 148/84 O2 Sat by Pulse Oximetry 97 94 L 94 L 12/27/19 08:00 12/27/19 09:39 12/27/19 12:00 Temperature 98.6 F 98.6 F Pulse Rate 62 74 Respiratory Rate 18 18 20 Blood Pressure 139/75 137/76 O2 Sat by Pulse Oximetry 99 94 L Labs: Laboratory Last Values WBC 15.5 X10^3/uL (3.6-10.0) H 12/27/19 05:20 RBC 4.16 X10^6/uL (3.5-5.4) 12/27/19 05:20 Hgb 12.9 g/dL (12.0-16.0) 12/27/19 05:20 Hct 38.6 % (36.0-47.0) 12/27/19 05:20 MCV 92.7 fL (80.0-100.0) 12/27/19 05:20 MCH 31.1 pg (27.0-34.0) 12/27/19 05:20 MCHC 33.5 g/dL (33.0-35.0) 12/27/19 05:20 RDW 14.1 % (11.6-16.5) 12/27/19 05:20 Plt Count 421 X10^3/uL (150.0-450.0) 12/27/19 05:20 Plt Count Comment Adequate (ADEQUATE) 12/25/19 05:03 MPV 8.6 fL (7.4-11.0) 12/27/19 05:20 Neut % (Auto) 85.1 % (42.0-75.0) H 12/27/19 05:20 Lymph % (Auto) 9.8 % (21.0-51.0) L 12/27/19 05:20 [place] % (Auto) 4.8 % (0.0-13.0) 12/27/19 05:20 Eos % (Auto) 0.1 % (0.9-2.9) L 12/27/19 05:20 Baso % (Auto) 0.2 % (0.2-1.0) 12/27/19 05:20 Neut # (Auto) 13.2 x10^3/uL (2.2-4.8) H 12/27/19 05:20 Lymph # (Auto) 1.5 X10^3/uL (1.3-2.9) 12/27/19 05:20 [place] # (Auto) 0.7 x10^3/uL (0.3-0.8) 12/27/19 05:20 Eos # (Auto) 0.0 x10^3/uL (0.0-0.2) 12/27/19 05:20 Baso # (Auto) 0.0 X10^3/uL (0.0-0.1) 12/27/19 05:20 Absolute Nucleated RBC 0.0 /100WBC 12/27/19 05:20 Total Counted 100 12/25/19 05:03 Neutrophils % (Manual) 87 % (39-76) H 12/25/19 05:03 Band Neutrophils % 4 % (0-10) 12/25/19 05:03 Lymphocytes % (Manual) 4 % (13-43) L 12/25/19 05:03 Monocytes % (Manual) 4 % (4-9) 12/25/19 05:03 Eosinophils % (Manual) 1 % (0-6) 12/25/19 05:03 Plt Morphology Comment Normal (NORMAL) 12/25/19 05:03 RBC Morphology Normal (NORMAL) 12/25/19 05:03 D-Dimer 2060 ng/mL (0-400) H* 12/24/19 12:54 Sodium 135 mmol/L (136-145) L 12/27/19 05:20 Corrected Sodium TNP 12/27/19 05:20 Potassium 3.7 mmol/L (3.5-5.1) 12/27/19 05:20 Chloride 100 mmol/L (98-107) 12/27/19 05:20 Carbon Dioxide 29.8 mmol/L (21-32) 12/27/19 05:20 BUN 18 mg/dL (7-18) 12/27/19 05:20 Creatinine 0.70 mg/dL (0.55-1.02) 12/27/19 05:20 Est GFR (MDRD) Af Amer > 60 (>60) 12/27/19 05:20 Est GFR (MDRD) Non-Af > 60 (>60) 12/27/19 05:20 Glucose 88 mg/dL (65-99) 12/27/19 05:20 Lactic Acid 1.1 mmol/L (0.4-2.0) 12/24/19 07:10 Calcium 9.5 mg/dL (8.5-10.1) 12/27/19 05:20 Corrected Calcium 10.3 mg/dL (8.5-10.1) H 12/25/19 05:03 Magnesium 2.0 mg/dL (1.7-2.9) 12/25/19 05:03 Total Bilirubin 0.40 mg/dL (0.2-1.0) 12/25/19 05:03 AST 16 Units/L (15-37) 12/25/19 05:03 ALT 17 Units/L (12-78) 12/25/19 05:03 Alkaline Phosphatase 69 Units/L (46-116) 12/25/19 05:03 Creatine Kinase 51 Units/L (26-192) 12/24/19 19:30 CK-MB (CK-2) < 1.0 ng/mL (0-4.0) 12/24/19 19:30 CK/CKMB % Calc 2.0 % (<4) 12/24/19 19:30 Troponin I < 0.02 ng/mL (0-1.5) 12/24/19 19:30 C-Reactive Protein 353.90 mg/L (0-3.0) H 12/24/19 12:54 B-Natriuretic Peptide 84.4 pg/mL (0-79) H 12/24/19 07:10 Total Protein 7.0 g/dL (6.4-8.2) 12/25/19 05:03 Albumin 2.2 g/dL (3.4-5.0) L 12/25/19 05:03 Globulin 4.8 g/dL (2.5-4.5) H 12/25/19 05:03 Albumin/Globulin Ratio 0.5 Ratio (1.1-2.1) L 12/25/19 05:03 Specimen Type Catherized urine 12/24/19 08:08 Urine Color Dark yellow (YELLOW) 12/24/19 08:08 Urine Appearance Hazy (CLEAR) 12/24/19 08:08 Urine pH 5.0 (5.0 - 8.0) 12/24/19 08:08 Ur Specific [place] 1.020 (1.000-1.030) 12/24/19 08:08 Urine Protein 2+ (NEGATIVE) 12/24/19 08:08 Urine Glucose (UA) Negative (NEGATIVE) 12/24/19 08:08 Urine Ketones 3+ (NEGATIVE) 12/24/19 08:08 Urine Occult Blood 5+ (NEGATIVE) 12/24/19 08:08 Urine Nitrite Negative (NEGATIVE) 12/24/19 08:08 Urine Bilirubin 2+ (NEGATIVE) 12/24/19 08:08 Urine Urobilinogen 1+ (NORMAL) 12/24/19 08:08 Ur Leukocyte Esterase 1+ (NEGATIVE) 12/24/19 08:08 Urine RBC 10-20 /HPF (0-3) A 12/24/19 08:08 Urine WBC 3-5 /HPF (0-5) 12/24/19 08:08 Ur Squamous Epith Cells Rare /HPF (NEGATIVE) 12/24/19 08:08 Ur Renal Epithelial Cell Rare /HPF (NEGATIVE) 12/24/19 08:08 Amorphous Sediment Trace /HPF (NEGATIVE) 12/24/19 08:08 Urine Bacteria Trace /HPF (NEGATIVE) 12/24/19 08:08 Hyaline Casts Moderate /LPF (NEGATIVE) 12/24/19 08:08 Urine Mucus Many /HPF (NEGATIVE) 12/24/19 08:08 Ur Culture Indicated? No/not indicated 12/24/19 08:08 RSV Nasal Swab Negative (NEGATIVE) 12/24/19 07:05 Influenza Type A Ag Negative-presumptive (NEGATIVE) 12/24/19 07:05 Influenza Type B Ag Negative-presumptive (NEGATIVE) 12/24/19 07:05 SARS-CoV-2 (PCR) Negative (NEGATIVE) 12/24/19 07:52 S. pyogenes (TEM-PCR) Not detected (NOT DETECT) 12/24/19 07:05 Miscellaneous Test Covid 19 12/24/19 09:16 Reason For Visit: FEVER,RESP DISTRESS,CP,HIGHLY SUSPECTED COVID-19 Discharge Diagnosis All Active Problems (Updated 12/27/19 @ 11:50 by Rohini Lemus) COPD exacerbation (Acute) Pneumonia (Acute) Hypotension (Acute) Suspected COVID-19 virus infection (Acute) Hypokalemia (Acute) Chest pain (Acute) Respiratory distress (Acute) Fever (Acute) Arthritis (Chronic) Osteoarthritis (Chronic) Hypertension (Chronic) GERD (gastroesophageal reflux disease) (Chronic) Hypothyroidism (Chronic) Status post total hip replacement, left (Chronic) Hyperlipidemia (Chronic) History of asthma (Chronic) Gout (Chronic) Left hip pain (Chronic) Unsteady gait (Chronic) Plan of Treatment: Continue with present treatment and follow up plan. Pt is to keep follow up appointment as instructed and take medications as ordered. Discharge Medications Discharge Medications: No Known Drug Allergies Allergy (Verified 12/24/19 06:31) CONTINUE taking the following medications aspirin [Aspir-81] 81 mg PO DAILY 12/24/19 [History] atorvastatin 10 mg PO HS 12/24/19 [History] clonidine HCl 0.1 mg PO BID 12/24/19 [History] diclofenac sodium 1 % TOPICAL BID PRN 12/24/19 [History] ergocalciferol (vitamin D2) [Vitamin D2] 1,250 mcg PO WEEKLY 12/24/19 [History] gabapentin 100 mg PO BID 12/24/19 [History] gabapentin 400 mg PO HS 12/24/19 [History] hydrocodone-acetaminophen 1 tab PO BID PRN 12/24/19 [History] levothyroxine 50 mcg PO DAILY 12/24/19 [History] lisinopril-hydrochlorothiazide 1 tab PO DAILY 12/24/19 [History] omeprazole 40 mg PO DAILY 12/24/19 [History] potassium chloride 20 meq PO DAILY 12/24/19 [History] tramadol 50 mg PO DAILY PRN 12/24/19 [History] zolpidem 5 mg PO HS 12/24/19 [History] New Prescriptions amoxicillin-pot clavulanate 1 tab PO BID 5 Days #10 tab 12/27/19 [Rx]
== END 2019-12-27 14:15 | disposition home health service (06) | DRG 190 ==
LOC: ER 06:28 → ICU 07:53 → MED/SURG 12-26 14:07
PROVIDERS: ADMIT Internal Medicine; ATTEND Internal Medicine
DX: J44.1 Chronic obstructive pulmonary disease with (acute) exacerbation; Z87.09 Personal history of other diseases of the respiratory system; M19.90 Unspecified osteoarthritis, unspecified site; E87.6 Hypokalemia; E03.8 Other specified hypothyroidism; R50.9 Fever, unspecified; R26.81 Unsteadiness on feet; R07.2 Precordial pain; R06.03 Acute respiratory distress; Z20.818 Contact with and (suspected) exposure to other bacterial communicable diseases; R94.31 Abnormal electrocardiogram [ECG] [EKG]; J18.8 Other pneumonia, unspecified organism; K21.9 Gastro-esophageal reflux disease without esophagitis; I95.89 Other hypotension; E78.5 Hyperlipidemia, unspecified; M25.552 Pain in left hip
CPT/HCPCS: 36415; 51702; 71010; 71045; 71275; 80048; 80053; 81001; 82550; 82553; 83605; 83735; 83880; 84132; 84484; 85025; 85378; 86140; 87040; 87070; 87205; 87400; 87420; 87635; 87651; 87804; 93005; 94640; 94760; 96365; 96374; 97110; 97161; 97166; 99285; A4222; J0696; J1650; J2543; J3490; J7050; J7512; J7620